=== PATIENT | male | born 1940 | race Caucasian/White ===

== ENCOUNTER 2022-05-30 16:25 | Inpatient (IN) ==
[2022-05-30] MEDS ORDERED: ONDANSETRON INJ 2 MG/ML 2 ML VIAL IV STA ×2 (17:20→21:36)
[2022-05-30 17:27] LABS: Basophils # (auto) 0.02 K/uL (0-0.2); Basophils % (auto) 0.2 %; Hematocrit (blood only) 41.8 % (40.1-51.0); Hemoglobin 14.8 g/dl (14.0-18.0); Immature Granulocytes # (auto) 0.03 K/uL (0.00-0.02); Immature Granulocytes % (auto) 0.4 %; Lymphocytes # (auto) 0.57 K/uL (1.2-3.4); Mean Corpuscular Hemoglobin 35.3 pg (25.0-34.0); Mean Corpuscular Hgb Conc 35.4 g/dL (32.0-36.0); Mean Corpuscular Volume 99.8 fL (80.0-100.0); Mean Platelet Volume 11.4 fL (9.4-12.4); Monocytes # (auto) 0.52 K/uL (0.24-0.82); Monocytes % (auto) 6.4 %; Neutrophils # (auto) 7.04 K/uL (1.4-6.5); Platelet Count 185 K/uL (130-400); RDW Standard Deviation 47.9 fL (36.4-46.3); Red Blood Count 4.19 M/uL (4.63-6.08); White Blood Count 8.18 K/ul (4.8-10.8)
--- NOTE | 2022-05-30 17:37 | XRay Report ---
XR chest 1V portable CLINICAL HISTORY: weakness TECHNIQUE: Single frontal radiograph of the chest was obtained. Comparison: None available at the time of this dictation. FINDINGS: Pacemaker is noted. Cardiomegaly is noted. The lungs are clear. No evidence of pleural effusion or pn eumothorax. IMPRESSION: No acute chest disease. Cardiomegaly is noted. ACT 112: Negative or not required by law. Electronically signed by: Darrin Rosales M.D. 05/30/2022 5:35 PM
[2022-05-30 17:52] LABS: Albumin Globulin Ratio 1.8 (0.9-2); Albumin Level 4.6 gm/dl (3.4-5.0); BUN Creatinine Ratio 17.6 (10-20); Bilirubin,Total 1.3 mg/dl (0.2-1.0); Calcium 9.6 mg/dl (8.5-10.1); Creatinine Clr Calc Pharmacy 57.3 ml/min; Est GFR (African American) 75.3 ml/min; Est GFR (Non-African American) 64.9 ml/min; Globulin 2.6 gm/dl (2.5-4.0); Potassium 3.7 mmol/L (3.5-5.1); Total Protein 7.2 gm/dl (6.0-8.3)
[2022-05-30 17:54] LABS: Partial Thromboplastin Ratio 0.9; Partial Thromboplastin Time 25.8 Seconds (21.0-31.0)
--- NOTE | 2022-05-30 18:07 | CT Scan Report ---
CT head/brain wo con CLINICAL HISTORY: AMS Technique: Contiguous axial CT images of the head were acquired from the base of the skull to the jemima misty without intravenous contrast administration. Images were viewed in brain, subdural [facility]. Automated dose lowering techniques and/or adjustment according to patient size were utilized for this exam. Comparison: None available at the time of this dictation. Findings: Areas of decreased attenuation are present in the periventricular and subcortical white matter bilate rally consistent with small vessel ischemic disease. Generalized cerebral atrophy with commensurate e nlargement of the ventricles, sulci, and cisterns is also present. There is no acute intracranial hem orrhage or evidence of acute territorial infarction. No shift of the midline structures, mass effect, or extra-axial abnormalities are shown. Atherosclerotic calcifications are present in the intracran ial segments of the internal carotid arteries. Imaged portions of the paranasal sinuses and mastoid air cells are clear. The orbits appear normal. There are no acute fractures of the calvaria or scalp swelling. Impression: No acute intracranial hemorrhage, no evidence of acute territorial infarction or other acute intracra nial disease process. ACT 112: Negative or not required by law. Electronically signed by: Darrin Rosales M.D. 05/30/2022 6:04 PM
[2022-05-30] MEDS ORDERED: OPTIRAY 320 500ml IV ONE ×2 (19:24→21:07)
[2022-05-30 19:26] LABS: Influenza A virus by PCR Negative (Neg); Influenza B virus by PCR Negative (Neg); RSV by PCR Negative (Neg); SARS CoV2 RNA(COVID-19) Ceph NEGATIVE (Negative)
--- NOTE | 2022-05-30 20:08 | CT Scan Report ---
CT angio head w con, CT angio neck with con CLINICAL HISTORY: CVA sx, aphasia TECHNIQUE: Contiguous axial CT images of the head were acquired from the base of the skull to the jemima misty without intravenous contrast administration. CT angiography of the head and neck was performed f ollowing intravenous administration of iodinated contrast. Coronal and sagittal MIPS were obtained fr om the axial data set and were submitted for review. Automated dose lowering techniques and/or adjus tment according to patient size were utilized for this examination. All measurements were calculated based on NASCET criteria. CT DOSE: 600.39 mGy.cm Comparison: Comparison is made to CT head 05/30/2022 FINDINGS: Lungs and soft tissues are unremarkable. CTA Neck: Direct origin of the left vertebral artery from the aortic arch is seen. There are dissect ions of the bilateral internal carotid arteries which do not extend to the petrous portion of the ves fernanda. The dissections measure 14 mm on the left and 14 mm on the right. The internal carotid arteries are tortuous bilaterally. The common carotid, external carotid, cervical segments of the internal ca rotid arteries, and the cervical segments of the vertebral arteries are patent without hemodynamicall y significant stenosis. The left vertebral artery is dominant. CTA Head: The anterior and posterior cerebral circulations are patent. The left vertebral artery ter minates in PICA. origin of the left UPHOLSTERER APPRENTICE noted. IMPRESSION: 1. Dissections of the bilateral internal carotid arteries not extending to the petrous portion of th e artery. Distal internal carotid arteries are well opacified. 2. No occlusion, hemodynamically significant stenosis, aneurysm, dissection, or arteriovenous malfor mation in the major intracranial arteries. Assessment of stenosis of the internal carotid arteries is based on NASCET criteria. ACT 112: Negative or not required by law. Electronically signed by: Darrin Rosales M.D. 05/30/2022 8:05 PM
[2022-05-30] MEDS ORDERED: METOPROLOL TARTRATE 1 MG/ML VIAL IV STA (21:28)
[2022-05-30] MEDS ORDERED: METOPROLOL TARTRATE 1 MG/ML VIAL IV ONE (21:29)
[2022-05-30] MEDS: SODIUM CHLORIDE 0.9% 1000ML 1,000 ML IV SCH (21:40)
[2022-05-30 22:03] LABS: Magnesium 1.8 mg/dl (1.7-2.4)
[2022-05-30 22:07] LABS: Troponin I High Sensitivity 13.1 pg/ml (0-20)
--- NOTE | 2022-05-30 22:09 | History & Physical Report ---
Date of Service May 30, 2022 Assessment & Plan (1) Encephalopathy acute: Plan: Corey is a 81 year old male w/ unknown past medical history admitted for acute encephalopathy. Encephalopathy: -CBC, CMP, TSH, glucose WNL. COVID/Flu/RSV negative. -CT Head w/o any acute intracranial process. -CTA Head and Neck: dissections of b/l internal carotid arteries, distal internal carotid arteries well opacified. -Chest XR without any evidence for acute lung process, sinuses clear on head CT. U/A w/ reflex, stool PCR ordered for possible infectious etiology. -Unclear at current time whether confusion due to metabolic encephalopathy vs seizure post-ictal state vs alcoholic Wernicke's vs other cause. -Ordered Ammonia, B12, Folate, alcohol level, routine EEG, MRI brain w/o contrast. -Started on NSS 125ml/hr. Zofran 4mg IV q6h -Neuro checks q4h. -Can consult neurology if no improvement on above. Hypoxia: -Hypoxic to 86 on entry on RA. Up to WNL on 3L O2. -CXR as above, no acute lung process. -No known past history of smoking or lung disease. -Wean as tolerated. -Continue to monitor O2. Internal Carotid Artery Dissection: -CTA head and neck w/ dissections of b/l internal carotid arteries. -Possibly chronic as patient states he has been seen for carotid vessel issues in the past 10 years prior. -No residual deficits from baseline per patient, less likely stroke or contri bution to confusion from dissections. -Patient on aspirin at home, will continue ASA 81mg here although dosage at home unknown. -Continue to monitor mentation. F/E/N/GI: NPO, monitor electrolytes, NSS 125ml/hr DVT Prophylaxis: SCDs, per patient no past history of GI bleed. Code Status: Full code, patient with questionable current capacity in confused state, attempted to call however no answer and she is in rehabilitation facility. Hopefully confusion will improve. Dispo: Med/Surg Telemetry. (2) Internal carotid artery dissection: (3) Hypoxia: History of Present Illness Chief Complaint: Confusion Primary Care Provider: NO PCP Corey is a 81 year old male w/ unclear past medical history presented to the ED from his 's physical rehabilitation facility for confusion. Patient states he has a difficult time remembering the details of things past and present at the current time however said he came up from [facility] earlier today to visit his in her rehabilitation facility. He states that he drove up earlier today feeling a little out of character, not feeling too well, drove to the facility, and had started to get weak and go down in the facility. Staff helped him up at that time and called EMS to bring him to the hospital. He has a hard time remembering any past medical history, however states that he did have a possible stroke event 10 years prior resulting in some residual weakness bilaterally, more so on the right side. He states he had a past discovery of vessel issue in the neck for 10 years back as well for which he did not undergo any surgical intervention. He says he is on medications for his heart but unsure which ones, although he did endorse being on a daily aspirin. He confirms the presence of a pacemaker and says that it was put in place 1.5 years ago however unclear on why it was placed. He denies any fevers, chills, shortness of breath, chest pain, vomiting; he does have nausea. He has had some diarrhea over the past few days but denies consuming any raw, undercooked food or seafood. He states he usually drinks about 1-2 beers during dinner time, may have another beer while reading, followed by a glass or two of whiskey that may be partially diluted. This is a daily occurrence for him and the last drink he had was whiskey yesterday night. He denies any history of smoking or drug use. Allergies Allergy/AdvReac Type Severity Reaction Status Date / Time No Known Allergies Allergy Unverified 05/30/22 20:25 Home Medications Medication Instructions Recorded Confirmed Type atorvastatin 40 mg tablet 40 mg PO ONCE HS 05/31/22 05/31/22 History cholecalciferol (vitamin D3) 50 PO DAILY 05/31/22 History mcg (2,000 unit) capsule diltiazem HCl 300 mg 300 mg PO DAILY 05/31/22 05/31/22 History capsule,extended release 24 hr furosemide 40 mg tablet 40 mg PO BID 05/31/22 05/31/22 History hydrocodone 5 mg-acetaminophen 325 1 tab PO Q8H PRN Severe Pain 05/31/22 05/31/22 History mg tablet (Scale Score 7-10) prednisone 10 mg tablet mg 05/31/22 History tamsulosin 0.4 mg capsule 0.4 mg PO DAILY 05/31/22 05/31/22 History Past Med/Surg History Medical History (Updated 05/31/22 @ 16:11 by Ronnell Cheng PA-C) Hypercholesterolemia Social History Smoking Status: Never smoker Hx Alcohol Use: Yes Alcohol type: beer and hard liquor Hx Substance Use: No Preferred Language: Lao Communication Ability: Effective 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 Physical Exam Constitutional: WD/WN, vitals as above Eyes: PERRL, conjunctivae normal, anicteric sclerae Respiratory: normal respiratory effort, lungs clear to auscultation Cardiovascular: Tachycardic, S1 and S2, holosystolic murmur best heard at L sternal border. Gastrointestinal (Abdomen): BS+, soft, non-tender, distended. Musculoskeletal: Strength 4/5 at bilateral lower extremities (patient states baseline since possible stroke 10 years ago) Neurologic: normal touch/pain/proprioception, CN's II-XI intact bilaterally, awake and + confused Psychiatric: Apperance: + disheveled and appeared stated age Eye Contact: + fair eye contact Oriented to time, place, and name. Recent memory mostly in tact, remote memory mildly intact. Results & Data Results & Data ([facility]) Vital Signs (Past 12 Hours) Vital Signs Temp Pulse Pulse Resp BP BP Pulse Ox 05/30/22 21:32 113 H 183/85 H 05/30/22 21:27 120 H 23 131/81 87 L 05/30/22 20:05 60 159/91 H 94 05/30/22 18:00 60 21 05/30/22 18:00 156/87 H 05/30/22 17:30 60 23 95 05/30/22 17:00 60 21 92 05/30/22 17:00 152/88 H 05/30/22 16:42 60 20 92 05/30/22 16:42 156/89 H 05/30/22 16:38 61 22 86 L 05/30/22 17:09 78 20 98 05/30/22 16:14 88 L 05/30/22 16:14 36.8 C 60 20 150/89 H 98 O2 Del Method O2 Flow Rate 05/30/22 21:32 05/30/22 21:27 Non-rebreather 05/30/22 20:05 05/30/22 18:00 05/30/22 18:00 05/30/22 17:30 Nasal Cannula 3 05/30/22 17:00 05/30/22 17:00 05/30/22 16:42 05/30/22 16:42 05/30/22 16:38 05/30/22 17:09 Nasal Cannula 3 05/30/22 16:14 Room Air 05/30/22 16:14 Nasal Cannula 3 Supervising Physician Co-Signing Physician Notes Attending addendum: I have physically seen this patient, have supervised the medical residents activities, and agree with the H&P unless as otherwise noted. Assessment and Plan: Acute encephalopathy- CT head without contrast negative CTA head and neck with dissection of internal carotid arteries bilaterally not involving petrous portion of carotids Order MRI brain, if pacer is MRI compatible Ischemic stroke with a TIA protocol NSS at 125 mils per hour Zofran 4 mg IV every 6 hours as needed Differential including metabolic versus postictal versus Warnicke's or other Follow urine culture sensitivity, blood culture and sensitivities Hypoxia- CTA chest negative for PE CTA chest does show COPD Suspect COPD exacerbation Wean oxygen to target of pulse ox 92% DuoNebs every 2 hours as needed May be contributing to or cause of encephalopathic picture Bilateral carotid artery dissection- Patient reports having been told of a problem with his carotid vessels 10 years ago Likely a chronic issue MRI brain/MRA if pacer is MRI or compatible Otherwise may consider carotid Dopplers for different view Neurology to assess Remaining orders and notations as noted Resident Activity Tracking Resident Involvement: Resident Care Provided Care Provided: Adult Hospital Medicine
[2022-05-30 23:31] LABS: Appearance Urine Clear (Clear); Bacteria Urine Automated Negative (Negative); Bilirubin Urine Negative (Negative); Blood Urine Negative (Negative); Color Urine Yellow; Glucose Urine UA Negative (Negative); Ketones Urine Trace (Negative); Leukocyte Esterase Urine Negative (Negative); Nitrite Urine Negative (Negative); Protein Urine 1+ (Negative); RBC Urine Automated 0-4 /hpf (0-4); Specific Gravity Urine > 1.045 (1.000-1.030); Urobilinogen Urine Negative (Negative)
[2022-05-31] MEDS ORDERED: ONDANSETRON INJ 2 MG/ML 2 ML VIAL IV PRN (00:42)
[2022-05-31] MEDS ORDERED: ACETAMINOPHEN 325 MG TAB PO PRN (00:42)
[2022-05-31] MEDS: SODIUM CHLORIDE 0.9% 1000ML 1,000 ML IV SCH ×3 (06:45→23:27)
--- NOTE | 2022-05-31 07:14 | CT Scan Report ---
CT ANGIOGRAM OF THE ABDOMEN AND PELVIS CLINICAL HISTORY: Generalized abdominal pain. COMPARISON STUDY: No priors. TECHNIQUE: Following the IV administration of 114 cc of Optiray 320, CT angiogram of the abdomen and pelvis was performed from the lung bases the proximal femora. Images are reviewed in the axial, sagit saadia, and coronal planes. 3-D MIPS images are created and assessed. IV contrast was administered witho ut complication. A dose lowering technique was utilized adhering to the principles of ALARA. The exa mination is compromised by motion artifact. FINDINGS: Lower chest: The heart is enlarged and without pericardial effusion. A pacemaker lead is in place. Th ere is a tiny hiatal hernia. The lung bases are clear noting bibasilar scarring/atelectasis. Liver: The contrast-enhanced liver is normal in size, contour, and attenuation. There is no intrahepa tic biliary ductal dilatation. Gallbladder: Not identified and presumed surgically absent. Spleen: Normal in size and attenuation. Pancreas: Unremarkable. Adrenal glands: Unremarkable. Kidneys: The contrast enhanced kidneys demonstrate marked cortical atrophy and are without hydronephr osis. The kidneys enhance indication symmetrically. Excreted IV contrast fills the renal collecting s ystems and ureters. Abdominal aorta and iliac arteries: There is advanced atherosclerotic calcification and ectasia of th e abdominal aorta. The distal abdominal aorta measures up to 2.8 cm in diameter. The abdominal aorta is widely patent. No dissection is seen. The iliac arteries are widely patent bilaterally. Major branches of the abdominal aorta: The celiac trunk, superior mesenteric, and inferior mesenteric arteries are widely patent. An accessory left hepatic artery arises from the left gastric artery. Th e splenic artery is patent. Single bilateral renal arteries are widely patent. Bowel: There is mild colonic diverticulosis without CT evidence of acute diverticulitis. No bowel obs truction is seen. The appendix is not clearly visualized. Peritoneum: There is no intraperitoneal free air or abdominal ascites. There is a fat-containing umbi lical hernia. Lymphadenopathy: None. Pelvic viscera: Evaluation of the pelvis is degraded by streak artifact from a right hip arthroplasty . The prostate gland is enlarged and heterogeneous. The bladder is filled with excreted IV contrast. The bladder wall appears thickened and trabeculated indicating chronic outlet obstruction. There are several bladder diverticula which measure up to 2.3 cm. Skeletal structures: The skeletal structures are osteopenic. No destructive bony lesions are seen. A right hip arthroplasty is in place. There are healed right pubic ring fractures. There are age indete rminate compression deformities of T10, T11, T12, L1, and L5. IMPRESSION: 1. There is advanced atherosclerotic calcification and ectasia of the abdominal aorta. 2. No dissection is seen. 3. Unremarkable CT angiogram of the major branches of the abdominal aorta. 4. No acute infectious or inflammatory findings are identified in the abdomen or pelvis. 5. Marked cardiomegaly and cardiac pacemaker. 6. There are age indeterminant thoracolumbar compression deformities as above. Clinical correlation w ill be required. 7. Colonic diverticulosis without CT evidence of acute diverticulitis. 8. Prostatomegaly with evidence of chronic bladder outlet obstruction. 9. Additional findings as above. ACT 112: Negative or not required by law. Electronically signed by: Gerardo Saze M.D. 05/31/2022 7:11 AM
--- NOTE | 2022-05-31 08:39 | CT Scan Report ---
CT ANGIOGRAPHY OF THE CHEST DISSECTION PROTOCOL CLINICAL HISTORY: Chest pain. Evaluate for aortic dissection. COMPARISON STUDY: Chest radiograph May 30, 2022. TECHNIQUE: Before and following the IV administration of 114 mL of Optiray, helical axial images of t he chest were obtained. Maximal intensity projections and sagittal and coronal reformats were viewed on an independent 3D workstation. IV contrast was administered without complication. Automated exp osure control was utilized for the study. A dose lowering technique was utilized adhering to the [facility] BLANCO. CT DOSE: 888.93 mGy.cm FINDINGS: Caliber of the thoracic aorta is normal. There is no intramural hematoma or thoracic aorti c dissection. There is cardiomegaly. Left atrial appendage occluded device is in place. A left subcla vian pacer is in place. There is pronounced dilatation of the left atrium and left ventricle. There i s no pericardial effusion. Moderate dilatation of the central pulmonary arteries is noted. There is n o pneumothorax thorax. Trace bilateral pleural effusions are noted. Mild interlobular septal thickeni ng is noted. There is no consolidation to suggest pneumonia. Groundglass opacities favor atelectasis. Moderate T3 and T5 compression fractures are likely old. There are severe T10 and T11 compression fr actures. These are age indeterminate but probably old. There is an age indeterminate moderate to paige re L1 compression fracture. A 1.5 cm right upper pole renal calculus is present. IMPRESSION: 1. No thoracic aortic dissection. 2. Cardiomegaly with mild interstitial pulmonary edema and trace bilateral pleural effusions. 3. No consolidation to suggest pneumonia. 4. Multiple thoracic and upper lumbar spine compression fractures, as detailed above. 5. 1.5 cm right renal calculus. ACT 112: Negative or not required by law. Electronically signed by: Liang Cho M.D. 05/31/2022 8:38 AM
--- NOTE | 2022-05-31 09:10 | Emergency Department Note ---
Impression & Plan Internal carotid artery dissection, Hypoxia, Altered mental status ED Provider Note CHIEF COMPLAINT: Confusion, weakness HISTORY OF PRESENT ILLNESS: This 81-year-old male patient with a history of hypercholesterolemia and hypertension presents to the emergency department with complaints of confusion as of 11:00 this morning. Patient states he was able to drive to see his at the [facility]. Patient was found to be confused and hypoxic and a "loss for words" upon arrival to his 's room. EMS was called. He was noted to be 88% on room air, improving to 95% on 3 L by report. Patient states he has been with his at [facility] where she was admitted recently. He states she is frail but in "better shape than he is at this point." He is otherwise a fairly poor historian. Patient does mention that his grown children live [place]. REVIEW OF SYSTEMS: Unable to give a full review of systems secondary to confusion/difficulty with speech. ALLERGIES: see below MEDICATIONS: see below PMH: Hypertension, hyper cholesterolemia SOCIAL HISTORY: DDx: Infection, dehydration, metabolic abnormality, hypo/hyperglycemia, electrolyte disturbance, anemia, hypoxia, cardiac sources, intracerebral event, toxicologic, neurologic, as well as other pathologies. PHYSICAL EXAM: Vital signs reviewed. General: Elderly 81-year-old male, appears to be ill, on nasal cannula oxygen HEENT: No scleral icterus, PERRLA, neck supple. Dry mucous membranes. Cardiovascular: Regular rate and rhythm, no extra sounds. Pacemaker noted in the left anterior chest. Pulmonary: Clear to auscultation bilaterally, normal work of breathing. Abdomen: Soft, nontender, nondistended, positive bowel sounds. Musculoskeletal: Atraumatic, no peripheral edema. Neurologic: Awake and alert, able to follow commands. Speech is somewhat mumbled, occasionally substitutes incorrect words/word salad. Negative pronator drift, intact [id number]. Does become confused with complex commands. Generally seems weak. Skin: Warm, dry, no rash EMERGENCY DEPARTMENT COURSE/MDM: This patient was evaluated and appeared to be in no significant distress. Patient was borderline hypoxic on nasal cannula oxygen. He was at 1 point escalated to oxygen mask/nonrebreather. He did become nauseated on several occasions. Patient was given IV Zofran. External records were reviewed as best possible by medication history. His [facility] records were not immediately available. CT imaging of the head was performed and revealed no acute intracranial abnormality. On repeat evaluation, the patient seemed to decline further with nausea, retching and his speech became more jumbled, although patient did seem to have periods of lucency. Patient is noted to be in a ventricular paced rhythm with underlying atrial flutter. He did receive 5 mg of IV metoprolol was ordered. CT angiograms were ordered and revealed bilateral internal carotid artery dissections. CT imaging of the chest and abdomen were then ordered and revealed no evidence of aortic dissection. Patient states he remembers "asymmetry" of his carotids. He was unable to give more detail. Patient was discussed with the hospitalist service as the acuity of the situation is unclear. He will require MRI of the brain, oxygen supplemen tation. MONITORING: An order for cardiac monitoring was placed and the patient is noted to be in a ventricularly paced rhythm with underlying atrial flutter at 60 beats per minute. RADIOLOGY: See below EKG: To my interpretation reveals a ventricular paced rhythm at 60 bpm, possible underlying atrial flutter versus artifact. No previous for comparison. DISPOSITION: Admission I have personally spent greater than 45 minutes of critical care time in the direct management of this patient. This includes bedside care, interpretation of diagnostic studies, and testing, discussion with consultants, patient, and family members, and other required patient management activities. This 45 minutes is in excess of all separately billable procedures. Past Med/Surg History Medical History A-fib HTN (hypertension) Hypercholesterolemia Family History Mother , age 59 of an [facility] Myocardial infarction Father , age 91 with colon cancer Colorectal cancer Social History Smoking Status: Never smoker Hx Alcohol Use: Yes Alcohol type: beer and hard liquor Alcohol Intake Frequency: 4 or More x per/Week Alcohol Intake Frequency Comment: 1-2 beers per day plus a whiskey (or Gin) in the evening. Hx Substance Use: No Preferred Language: Maori Communication Ability: Effective Can Technician Required: No Beliefs That Will Affect Care: None Current Living Situation: Alone current occupational status: retired current occupation: former personal computer network analyst Feels Safe at Home: Yes Assistive Devices: Glasses and Walker Allergies Allergies Allergy/AdvReac Type Severity Reaction Status Date / Time No Known Allergies Allergy Unverified 05/30/22 20:25 Home Meds Home Medications Medication Instructions Recorded Confirmed atorvastatin 40 mg tablet 40 mg PO ONCE HS 05/31/22 05/31/22 cholecalciferol (vitamin D3) 50 PO DAILY 05/31/22 mcg (2,000 unit) capsule diltiazem HCl 300 mg 300 mg PO DAILY 05/31/22 05/31/22 capsule,extended release 24 hr furosemide 40 mg tablet 40 mg PO BID 05/31/22 05/31/22 hydrocodone 5 mg-acetaminophen 325 1 tab PO Q8H PRN Severe Pain 05/31/22 05/31/22 mg tablet (Scale Score 7-10) Previous Rx's Medication Instructions Recorded cyanocobalamin (vitamin B-12) 500 500 mcg PO QAM #30 tabs 06/02/22 mcg tablet thiamine HCl (vitamin B1) 100 mg 100 mg PO QAM #30 tabs 06/02/22 tablet Results & Data (ED) Vital Signs Vital Signs - 24 hr 05/30/22 16:14 05/30/22 16:14 05/30/22 17:09 Temperature 36.8 C Temperature Source Oral Pulse Rate 60 78 Pulse Rate [Right Finger] Pulse Rate from SpO2 Sensor Pulse Rhythm Regular Regular Pulse Rhythm [Right Finger] Pulse Strength Normal Respiratory Rate 20 20 Respiratory Effort / Characteristics Non-Labored Respiratory Depth Normal Respiratory Pattern Blood Pressure 150/89 H Blood Pressure [Right Arm] Blood Pressure Mean 109 Blood Pressure Mean [Right Arm] Blood Pressure Position Sitting Pulse Oximetry 98 88 L 98 Oxygen Delivery Method Nasal Cannula Room Air Nasal Cannula Oxygen Flow Rate 3 3 Sepsis Recent Fever Within 48 Hours No Sepsis New/Unexplained Change in Mental Status N/A Sepsis Action Taken by Nursing No Action Required Oxygen Flow Rate - Titration 4 Pulse Oximetry Post Tiitration 98 05/30/22 16:38 05/30/22 16:42 05/30/22 16:42 Temperature Temperature Source Pulse Rate 61 60 Pulse Rate [Right Finger] Pulse Rate from SpO2 Sensor 60 60 Pulse Rhythm Pulse Rhythm [Right Finger] Pulse Strength Respiratory Rate 22 20 Respiratory Effort / Characteristics Respiratory Depth Respiratory Pattern Blood Pressure 156/89 H Blood Pressure [Right Arm] Blood Pressure Mean 111 Blood Pressure Mean [Right Arm] Blood Pressure Position Pulse Oximetry 86 L 92 Oxygen Delivery Method Oxygen Flow Rate Sepsis Recent Fever Within 48 Hours Sepsis New/Unexplained Change in Mental Status Sepsis Action Taken by Nursing Oxygen Flow Rate - Titration Pulse Oximetry Post Tiitration 05/30/22 17:00 05/30/22 17:00 05/30/22 17:30 Temperature Temperature Source Pulse Rate 60 60 Pulse Rate [Right Finger] Pulse Rate from SpO2 Sensor 60 57 L Pulse Rhythm Pulse Rhythm [Right Finger] Pulse Strength Respiratory Rate 21 23 Respiratory Effort / Characteristics Respiratory Depth Respiratory Pattern Blood Pressure 152/88 H Blood Pressure [Right Arm] Blood Pressure Mean 109 Blood Pressure Mean [Right Arm] Blood Pressure Position Pulse Oximetry 92 95 Oxygen Delivery Method Nasal Cannula Oxygen Flow Rate 3 Sepsis Recent Fever Within 48 Hours Sepsis New/Unexplained Change in Mental Status Sepsis Action Taken by Nursing Oxygen Flow Rate - Titration Pulse Oximetry Post Tiitration 05/30/22 18:00 05/30/22 18:00 05/30/22 20:05 Temperature Temperature Source Pulse Rate 60 Pulse Rate [Right Finger] 60 Pulse Rate from SpO2 Sensor Pulse Rhythm Pulse Rhythm [Right Finger] Regular Pulse Strength Respiratory Rate 21 Respiratory Effort / Characteristics Respiratory Depth Respiratory Pattern Regular Blood Pressure 156/87 H Blood Pressure [Right Arm] 159/91 H Blood Pressure Mean 110 Blood Pressure Mean [Right Arm] 113 Blood Pressure Position Pulse Oximetry 94 Oxygen Delivery Method Oxygen Flow Rate Sepsis Recent Fever Within 48 Hours Sepsis New/Unexplained Change in Mental Status Sepsis Action Taken by Nursing Oxygen Flow Rate - Titration Pulse Oximetry Post Tiitration 05/30/22 21:27 05/30/22 21:32 05/30/22 19:02 Temperature Temperature Source Pulse Rate 113 H 60 Pulse Rate [Right Finger] 120 H Pulse Rate from SpO2 Sensor 60 Pulse Rhythm Pulse Rhythm [Right Finger] Pulse Strength Respiratory Rate 23 21 Respiratory Effort / Characteristics Respiratory Depth Respiratory Pattern Blood Pressure 183/85 H 159/89 H Blood Pressure [Right Arm] 131/81 Blood Pressure Mean 112 Blood Pressure Mean [Right Arm] 97 Blood Pressure Position Pulse Oximetry 87 L 93 Oxygen Delivery Method Non-rebreather Oxygen Flow Rate Sepsis Recent Fever Within 48 Hours Sepsis New/Unexplained Change in Mental Status Sepsis Action Taken by Nursing Oxygen Flow Rate - Titration Pulse Oximetry Post Tiitration 05/30/22 20:00 05/30/22 20:30 05/30/22 21:20 Temperature Temperature Source Pulse Rate 60 60 128 H Pulse Rate [Right Finger] Pulse Rate from SpO2 Sensor 59 L 59 L 60 Pulse Rhythm Pulse Rhythm [Right Finger] Pulse Strength Respiratory Rate 22 23 31 H Respiratory Effort / Characteristics Respiratory Depth Respiratory Pattern Blood Pressure 159/91 H 165/92 H 131/81 Blood Pressure [Right Arm] Blood Pressure Mean 113 116 97 Blood Pressure Mean [Right Arm] Blood Pressure Position Pulse Oximetry 95 93 Oxygen Delivery Method Oxygen Flow Rate Sepsis Recent Fever Within 48 Hours Sepsis New/Unexplained Change in Mental Status Sepsis Action Taken by Nursing Oxygen Flow Rate - Titration Pulse Oximetry Post Tiitration 05/30/22 21:30 05/30/22 21:46 05/30/22 21:46 Temperature Temperature Source Pulse Rate 70 74 Pulse Rate [Right Finger] Pulse Rate from SpO2 Sensor 60 64 Pulse Rhythm Pulse Rhythm [Right Finger] Pulse Strength Respiratory Rate 28 H 32 H Respiratory Effort / Characteristics Respiratory Depth Respiratory Pattern Blood Pressure 183/85 H 160/95 H Blood Pressure [Right Arm] Blood Pressure Mean 117 116 Blood Pressure Mean [Right Arm] Blood Pressure Position Pulse Oximetry 94 91 Oxygen Delivery Method Oxygen Flow Rate Sepsis Recent Fever Within 48 Hours Sepsis New/Unexplained Change in Mental Status Sepsis Action Taken by Nursing Oxygen Flow Rate - Titration Pulse Oximetry Post Tiitration 05/30/22 22:00 05/30/22 22:15 05/30/22 22:15 Temperature Temperature Source Pulse Rate 60 Pulse Rate [Right Finger] Pulse Rate from SpO2 Sensor 60 60 Pulse Rhythm Pulse Rhythm [Right Finger] Pulse Strength Respiratory Rate 22 25 H Respiratory Effort / Characteristics Respiratory Depth Respiratory Pattern Blood Pressure 164/98 H 156/95 H Blood Pressure [Right Arm] Blood Pressure Mean 120 115 Blood Pressure Mean [Right Arm] Blood Pressure Position Pulse Oximetry 91 92 Oxygen Delivery Method Oxygen Flow Rate Sepsis Recent Fever Within 48 Hours Sepsis New/Unexplained Change in Mental Status Sepsis Action Taken by Nursing Oxygen Flow Rate - Titration Pulse Oximetry Post Tiitration 05/30/22 22:30 Temperature Temperature Source Pulse Rate 60 Pulse Rate [Right Finger] Pulse Rate from SpO2 Sensor 60 Pulse Rhythm Pulse Rhythm [Right Finger] Pulse Strength Respiratory Rate 23 Respiratory Effort / Characteristics Respiratory Depth Respiratory Pattern Blood Pressure 162/99 H Blood Pressure [Right Arm] Blood Pressure Mean 120 Blood Pressure Mean [Right Arm] Blood Pressure Position Pulse Oximetry 94 Oxygen Delivery Method Oxygen Flow Rate Sepsis Recent Fever Within 48 Hours Sepsis New/Unexplained Change in Mental Status Sepsis Action Taken by Nursing Oxygen Flow Rate - Titration Pulse Oximetry Post Tiitration Home Medications Current Medication List: was personally reviewed by me Laboratory Data Attestation: I reviewed the patient's lab results. 06/02/22 08:28 06/02/22 08:28 Lab Results 05/30/22 05/30/22 05/30/22 Range/Units 17:09 17:09 17:09 WBC 8.18 (4.8-10.8) K/ul RBC 4.19 L (4.63-6.08) M/uL Hgb 14.8 (14.0-18.0) g/dl Hct 41.8 (40.1-51.0) % MCV 99.8 (80.0-100.0) fL MCH 35.3 H (25.0-34.0) pg MCHC 35.4 (32.0-36.0) g/dL RDW Std Deviation 47.9 H (36.4-46.3) fL RDW Coeff of Chandana 13.0 (11.5-14.5) % Plt Count 185 (130-400) K/uL MPV 11.4 (9.4-12.4) fL Immature Gran % (Auto) 0.4 % Neut % (Auto) 86.0 % Lymph % (Auto) 7.0 % Campbell % (Auto) 6.4 % Eos % (Auto) 0.0 % Baso % (Auto) 0.2 % Neut # (Auto) 7.04 H (1.4-6.5) K/uL Lymph # (Auto) 0.57 L (1.2-3.4) K/uL Campbell # (Auto) 0.52 (0.24-0.82) K/uL Eos # (Auto) 0.00 (0-0.50) K/uL Baso # (Auto) 0.02 (0-0.2) K/uL Immature Gran # (Auto) 0.03 H (0.00-0.02) K/uL PT (9.0-12.0) Seconds INR (0.9-1.1) APTT (21.0-31.0) Seconds PTT Ratio Sodium 139 (136-145) mmol/L Potassium 3.7 (3.5-5.1) mmol/L Chloride 99 (98-107) mmol/L Carbon Dioxide 29 (21-32) mmol/L Anion Gap 11 (3-11) BUN 19 (6-23) mg/dl Creatinine 1.08 (0.6-1.4) mg/dl Est Cr Clr Drug Dosing 57.3 ml/min Est GFR ( Amer) 75.3 ml/min Est GFR (Non-Af Amer) 64.9 ml/min BUN/Creatinine Ratio 17.6 (10-20) Glucose 183 H (70-99(Fasting)) mg/dl Calcium 9.6 (8.5-10.1) mg/dl Magnesium (1.7-2.4) mg/dl Total Bilirubin 1.3 H (0.2-1.0) mg/dl AST 34 (13-39) U/L ALT 26 (7-52) U/L Alkaline Phosphatase 71 (34-104) U/L Troponin I High Sens (0-20) pg/ml Total Protein 7.2 (6.0-8.3) gm/dl Albumin 4.6 (3.4-5.0) gm/dl Globulin 2.6 (2.5-4.0) gm/dl Albumin/Globulin Ratio 1.8 (0.9-2) TSH 0.818 (0.300-4.500) uIu/ml 05/30/22 05/30/22 Range/Units 17:09 17:09 WBC (4.8-10.8) K/ul RBC (4.63-6.08) M/uL Hgb (14.0-18.0) g/dl Hct (40.1-51.0) % MCV (80.0-100.0) fL MCH (25.0-34.0) pg MCHC (32.0-36.0) g/dL RDW Std Deviation (36.4-46.3) fL RDW Coeff of Chandana (11.5-14.5) % Plt Count (130-400) K/uL MPV (9.4-12.4) fL Immature Gran % (Auto) % Neut % (Auto) % Lymph % (Auto) % Campbell % (Auto) % Eos % (Auto) % Baso % (Auto) % Neut # (Auto) (1.4-6.5) K/uL Lymph # (Auto) (1.2-3.4) K/uL Campbell # (Auto) (0.24-0.82) K/uL Eos # (Auto) (0-0.50) K/uL Baso # (Auto) (0-0.2) K/uL Immature Gran # (Auto) (0.00-0.02) K/uL PT 11.0 (9.0-12.0) Seconds INR 1.0 (0.9-1.1) APTT 25.8 (21.0-31.0) Seconds PTT Ratio 0.9 Sodium (136-145) mmol/L Potassium (3.5-5.1) mmol/L Chloride (98-107) mmol/L Carbon Dioxide (21-32) mmol/L Anion Gap (3-11) BUN (6-23) mg/dl Creatinine (0.6-1.4) mg/dl Est Cr Clr Drug Dosing ml/min Est GFR ( Amer) ml/min Est GFR (Non-Af Amer) ml/min BUN/Creatinine Ratio (10-20) Glucose (70-99(Fasting)) mg/dl Calcium (8.5-10.1) mg/dl Magnesium 1.8 (1.7-2.4) mg/dl Total Bilirubin (0.2-1.0) mg/dl AST (13-39) U/L ALT (7-52) U/L Alkaline Phosphatase (34-104) U/L Troponin I High Sens 13.1 (0-20) pg/ml Total Protein (6.0-8.3) gm/dl Albumin (3.4-5.0) gm/dl Globulin (2.5-4.0) gm/dl Albumin/Globulin Ratio (0.9-2) TSH (0.300-4.500) uIu/ml Administered Medications Discontinued Medications Aspirin (Aspirin 81 Mg Ectab) 81 mg PO QAM LITZY Stop: 06/30/22 08:59 Last Admin: 06/01/22 07:41 Dose: 81 mg Documented By: Admin: 05/31/22 09:39 Dose: 81 mg Documented By: NAKIA Atorvastatin Calcium (Atorvastatin 40 Mg Tab) 40 mg PO LITZY Stop: 06/30/22 20:59 Last Admin: 06/01/22 20:41 Dose: 40 mg Documented By: Admin: 05/31/22 20:38 Dose: 40 mg Documented By: RENO Clopidogrel Bisulfate (Clopidogrel Bisulfate 75 Mg Tab) 75 mg PO [facility] Stop: 07/01/22 08:59 Last Admin: 06/01/22 10:37 Dose: 75 mg Documented By: NACHO Cyanocobalamin (Cyanocobalamin (B-12) 500 Mcg Tablet) 500 mcg PO [facility] Stop: 07/01/22 08:59 Last Admin: 06/02/22 10:19 Dose: Not Given Documented By: Admin: 06/01/22 10:37 Dose: 500 mcg Documented By: NACHO Diltiazem HCl (Diltiazem Hcl 300 Mg Capcr) 300 mg PO DAILY [facility] Stop: 07/01/22 08:59 Last Admin: 06/02/22 10:19 Dose: Not Given Documented By: Admin: 06/01/22 07:40 Dose: 300 mg Documented By: NACHO Famotidine (Famotidine 40 Mg Tablet) 40 mg PO [facility] Stop: 06/30/22 08:59 Last Admin: 06/02/22 10:19 Dose: Not Given Documented By: Admin: 06/01/22 07:41 Dose: 40 mg Documented By: Admin: 05/31/22 09:39 Dose: 40 mg Documented By: NAKIA Furosemide (Furosemide 40 Mg Tab) 40 mg PO BID [facility] Stop: 06/30/22 20:59 Last Admin: 06/02/22 10:19 Dose: Not Given Documented By: Admin: 06/01/22 20:41 Dose: Not Given Documented By: Admin: 06/01/22 07:40 Dose: 40 mg Documented By: Admin: 05/31/22 20:38 Dose: 40 mg Documented By: RENO Hydralazine HCl (Hydralazine Hcl 20 Mg/Ml Vial) 10 mg IV Q8 PRN PRN Reason: sbp>150 or dbp>85 Stop: 07/02/22 08:26 Last Admin: 06/02/22 08:40 Dose: 10 mg Documented By: NACHO Hydralazine HCl (Hydralazine Hcl 20 Mg/Ml Vial) Confirm Administered Dose 20 mg .ROUTE .STK-MED ONE Stop: 06/02/22 08:32 Last Admin: 06/02/22 10:16 Dose: Not Given Documented By: NACHO Sodium Chloride (Nss 1000ml) 1,000 mls @ 125 mls/hr IV .Q8H LITZY Stop: 06/29/22 21:44 Last Infusion: 06/01/22 08:02 Dose: 0 mls/hr Documented By: Admin: 06/01/22 07:38 Dose: 125 mls/hr Documented By: Infusion: 06/01/22 07:38 Dose: 0 mls/hr Documented By: Admin: 05/31/22 23:27 Dose: 125 mls/hr Documented By: Infusion: 05/31/22 23:27 Dose: 125 mls/hr Documented By: Admin: 05/31/22 15:53 Dose: 125 mls/hr Documented By: Infusion: 05/31/22 15:53 Dose: 125 mls/hr Documented By: Infusion: 05/31/22 13:54 Dose: 125 mls/hr Documented By: Infusion: 05/31/22 11:48 Dose: 0 mls/hr Documented By: Admin: 05/31/22 06:45 Dose: 125 mls/hr Documented By: Infusion: 05/31/22 06:00 Dose: 0 mls/hr Documented By: RENO(2) Admin: 05/30/22 21:40 Dose: 125 mls/hr Documented By: RENO(2) Levetiracetam 1,000 mg/ Sodium (Chloride) 110 mls @ 440 mls/hr IV NOW STA Stop: 06/02/22 10:26 Last Infusion: 06/02/22 11:34 Dose: 0 mls/hr Documented By: Admin: 06/02/22 10:42 Dose: 440 mls/hr Documented By: NACHO Ioversol (Optiray 320 500ml) 116 ml IV ONCE ONE Stop: 05/30/22 19:25 Last Admin: 05/30/22 19:24 Dose: 116 ml Documented By: WARD Ioversol (Optiray 320 500ml) 114 ml IV ONCE ONE Stop: 05/30/22 21:08 Last Admin: 05/30/22 21:11 Dose: 114 ml Documented By: ASAF Metoprolol Tartrate (Metoprolol Tartrate 1 Mg/Ml Vial) 5 mg IV NOW STA Stop: 05/30/22 21:29 Last Admin: 05/30/22 21:32 Dose: 5 mg Documented By: MARY ANNE Metoprolol Tartrate (Metoprolol Tartrate 1 Mg/Ml Vial) Confirm Administered Dose 5 mg IV .STK-MED ONE Stop: 05/30/22 21:30 Last Admin: 05/30/22 21:32 Dose: Not Given Documented By: MARY ANNE Ondansetron HCl (Ondansetron Inj 2 Mg/Ml 2 Ml Vial) 4 mg IV NOW STA Stop: 05/30/22 17:21 Last Admin: 05/30/22 17:34 Dose: 4 mg Documented By: JEANIE Ondansetron HCl (Ondansetron Inj 2 Mg/Ml 2 Ml Vial) 4 mg IV NOW STA Stop: 05/30/22 21:37 Last Admin: 05/30/22 21:39 Dose: 4 mg Documented By: RENO(2) Potassium Chloride (Potassium Chloride Crtab 20 Meq Tabcr) 40 meq PO NOW STA Stop: 05/31/22 20:09 Last Admin: 05/31/22 20:37 Dose: 40 meq Documented By: RENO Tamsulosin HCl (Tamsulosin Hcl 0.4 Mg Cap) 0.4 mg PO DAILY [facility] Stop: 07/01/22 08:59 Last Admin: 06/02/22 10:19 Dose: Not Given Documented By: Admin: 06/01/22 07:40 Dose: 0.4 mg Documented By: NACHO Thiamine HCl (Thiamine Hcl 100 Mg Tab) 100 mg PO QAM [facility] Stop: 06/30/22 08:59 Last Admin: 06/02/22 10:19 Dose: Not Given Documented By: Admin: 06/01/22 07:41 Dose: 100 mg Documented By: Admin: 05/31/22 09:39 Dose: 100 mg Documented By: NAKIA Imaging Data Radiologist's Impression: Abdomen/Pelvis CTA 05/30/22 20:15 CT ANGIOGRAM OF THE ABDOMEN AND PELVIS CLINICAL HISTORY: Generalized abdominal pain. COMPARISON STUDY: No priors. TECHNIQUE: Following the IV administration of 114 cc of Optiray 320, CT angiogram of the abdomen and pelvis was performed from the lung bases the proximal femora. Images are reviewed in the axial, sagittal, and coronal planes. 3-D MIPS images are created and assessed. IV contrast was administered without complication. A dose lowering technique was utilized adhering to the principles of ALARA. The examination is compromised by motion artifact. FINDINGS: Lower chest: The heart is enlarged and without pericardial effusion. A pacemaker lead is in place. There is a tiny hiatal hernia. The lung bases are clear noting bibasilar scarring/atelectasis. Liver: The contrast-enhanced liver is normal in size, contour, and attenuation. There is no intrahepatic biliary ductal dilatation. Gallbladder: Not identified and presumed surgically absent. Spleen: Normal in size and attenuation. Pancreas: Unremarkable. Adrenal glands: Unremarkable. Kidneys: The contrast enhanced kidneys demonstrate marked cortical atrophy and are without hydronephrosis. The kidneys enhance indication symmetrically. Excre soniya IV contrast fills the renal collecting systems and ureters. Abdominal aorta and iliac arteries: There is advanced atherosclerotic calcification and ectasia of the abdominal aorta. The distal abdominal aorta measures up to 2.8 cm in diameter. The abdominal aorta is widely patent. No dissection is seen. The iliac arteries are widely patent bilaterally. Major branches of the abdominal aorta: The celiac trunk, superior mesenteric, and inferior mesenteric arteries are widely patent. An accessory left hepatic artery arises from the left gastric artery. The splenic artery is patent. Single bilateral renal arteries are widely patent. Bowel: There is mild colonic diverticulosis without CT evidence of acute diverticulitis. No bowel obstruction is seen. The appendix is not clearly visualized. Peritoneum: There is no intraperitoneal free air or abdominal ascites. There is a fat-containing umbilical hernia. Lymphadenopathy: None. Pelvic viscera: Evaluation of the pelvis is degraded by streak artifact from a right hip arthroplasty. The prostate gland is enlarged and heterogeneous. The bladder is filled with excreted IV contrast. The bladder wall appears thickened and trabeculated indicating chronic outlet obstruction. There are several bladder diverticula which measure up to 2.3 cm. Skeletal structures: The skeletal structures are osteopenic. No destructive bony lesions are seen. A right hip arthroplasty is in place. There are healed right pubic ring fractures. There are age indeterminate compression deformities of T10, T11, T12, L1, and L5. IMPRESSION: 1. There is advanced atherosclerotic calcification and ectasia of the abdominal aorta. 2. No dissection is seen. 3. Unremarkable CT angiogram of the major branches of the abdominal aorta. 4. No acute infectious or inflammatory findings are identified in the abdomen or pelvis. 5. Marked cardiomegaly and cardiac pacemaker. 6. There are age indeterminant thoracolumbar compression deformities as above. Clinical correlation will be required. 7. Colonic diverticulosis without CT evidence of acute diverticulitis. 8. Prostatomegaly with evidence of chronic bladder outlet obstruction. 9. Additional findings as above. ACT 112: Negative or not required by law. Electronically signed by: Gerardo Saez M.D. 05/31/2022 7:11 AM Chest CTA 05/30/22 20:15 CT ANGIOGRAPHY OF THE CHEST DISSECTION PROTOCOL CLINICAL HISTORY: Chest pain. Evaluate for aortic dissection. COMPARISON STUDY: Chest radiograph May 30, 2022. TECHNIQUE: Before and following the IV administration of 114 mL of Optiray, helical axial images of the chest were obtained. Maximal intensity projections and sagittal and coronal reformats were viewed on an independent 3D workstation. IV contrast was administered without complication. Automated exposure control was utilized for the study. A dose lowering technique was utilized adhering to the principles of ALARA. CT DOSE: 888.93 mGy.cm FINDINGS: Caliber of the thoracic aorta is normal. There is no intramural hematoma or thoracic aortic dissection. There is cardiomegaly. Left atrial appendage occluded device is in place. A left subclavian pacer is in place. There is pronounced dilatation of the left atrium and left ventricle. There is no pericardial effusion. Moderate dilatation of the central pulmonary arteries is noted. There is no pneumothorax thorax. Trace bilateral pleural effusions are noted. Mild interlobular septal thickening is noted. There is no consolidation to suggest pneumonia. Groundglass opacities favor atelectasis. Moderate T3 and T5 compression fractures are likely old. There are severe T10 and T11 compression fractures. These are age indeterminate but probably old. There is an age indeterminate moderate to severe L1 compression fracture. A 1.5 cm right upper pole renal calculus is present. IMPRESSION: 1. No thoracic aortic dissection. 2. Cardiomegaly with mild interstitial pulmonary edema and trace bilateral pleural effusions. 3. No consolidation to suggest pneumonia. 4. Multiple thoracic and upper lumbar spine compression fractures, as detailed above. 5. 1.5 cm right renal calculus. ACT 112: Negative or not required by law. Electronically signed by: Liang Cho M.D. 05/31/2022 8:38 AM Blood Pressure Blood Pressure Findings: Normal blood pressure Blood Pressure Disposition: did not require urgent referral Discharge Plan Visit Data Chief Complaint: Confusion ED Provider: Jenny Duran Discharge Problem: Internal carotid artery dissection, Hypoxia, Altered mental status Patient Disposition: Admitted As Inpatient Discharge Instructions Interventions: ED Discharge Assessment Last Done: 05/31/22 00:44 : Altered mental status Qualifiers: Altered mental status type: delirium Qualified Code(s): R41.0 - Disorientation, unspecified
[2022-05-31] MEDS: FAMOTIDINE 40 MG TABLET PO SCH (09:39)
[2022-05-31] MEDS: THIAMINE HCL 100 MG TAB PO SCH (09:39)
[2022-05-31] MEDS: ASPIRIN 81 MG ECTAB PO SCH (09:39)
--- NOTE | 2022-05-31 10:45 | Electroencephalogram ---
EEG Procedure Note Date of Service May 31, 2022 Start / End Times Start Time: 1029 End Time: [address] Jones History patient is a 81-year-old with history of episodic confusion (possible postictal state ). Home Medication List Medication Instructions Recorded Confirmed Type Unobtainable 05/30/22 05/30/22 History Inpatient Medication List Aspirin (Aspirin 81 Mg Ectab) 81 mg PO [facility] Stop: 06/30/22 08:59 Last Admin: 05/31/22 09:39 Dose: 81 mg Documented By: NAKIA Famotidine (Famotidine 40 Mg Tablet) 40 mg PO [facility] Stop: 06/30/22 08:59 Last Admin: 05/31/22 09:39 Dose: 40 mg Documented By: NAKIA Sodium Chloride (Nss 1000ml) 1,000 mls @ 125 mls/hr IV .Q8H [facility] Stop: 06/29/22 21:44 Last Admin: 05/31/22 06:45 Dose: 125 mls/hr Documented By: Infusion: 05/31/22 06:00 Dose: 0 mls/hr Documented By: Admin: 05/30/22 21:40 Dose: 125 mls/hr Documented By: RENO Thiamine HCl (Thiamine Hcl 100 Mg Tab) 100 mg PO [facility] Stop: 06/30/22 08:59 Last Admin: 05/31/22 09:39 Dose: 100 mg Documented By: NAKIA Discontinued Medications Ioversol (Optiray 320 500ml) 116 ml IV ONCE ONE Stop: 05/30/22 19:25 Last Admin: 05/30/22 19:24 Dose: 116 ml Documented By: WARD Ioversol (Optiray 320 500ml) 114 ml IV ONCE ONE Stop: 05/30/22 21:08 Last Admin: 05/30/22 21:11 Dose: 114 ml Documented By: ASAF Metoprolol Tartrate (Metoprolol Tartrate 1 Mg/Ml Vial) 5 mg IV NOW STA Stop: 05/30/22 21:29 Last Admin: 05/30/22 21:32 Dose: 5 mg Documented By: MARY ANNE Metoprolol Tartrate (Metoprolol Tartrate 1 Mg/Ml Vial) Confirm Administered Dose 5 mg IV .STK-MED ONE Stop: 05/30/22 21:30 Last Admin: 05/30/22 21:32 Dose: Not Given Documented By: MES Ondansetron HCl (Ondansetron Inj 2 Mg/Ml 2 Ml Vial) 4 mg IV NOW STA Stop: 05/30/22 17:21 Last Admin: 05/30/22 17:34 Dose: 4 mg Documented By: MNE Ondansetron HCl (Ondansetron Inj 2 Mg/Ml 2 Ml Vial) 4 mg IV NOW STA Stop: 05/30/22 21:37 Last Admin: 05/30/22 21:39 Dose: 4 mg Documented By: BS Description This is a 21 electrode EEG with a single channel dedicated to limited EKG. The electrodes were placed in accordance with the International 10-20 system. Interpretation The predominant background activity consists of an irregular 10 Hz activity, of up to 30 mV in amplitude,seen symmetrically distributed over the posterior head regions bilaterally. This activity attenuates nicely with eye-opening and other alerting procedures. Photic stimulation was performed and elicited no change in the background activity and no abnormal responses were seen. Hyperventilation was not performed . A mild amount of muscle and movement artifact activity contaminated the recording, from time to time, but did not hinder interpretation to any significant degree. Throughout the waking portion of the recording, no focal abnormalities, abnormal slow activity, or potentially epileptogenic discharges are seen. The patient entered the drowsy state with no further activation. In summary, this EEG was normal during wakefulness and drowsiness. No focal abnormalities, potentially epileptogenic discharges, or abnormal slow activity was seen. Clinical Correlation The abscence of potentially epileptogenic activity does not exclude a seizure disorder, since interictally, EEGs can be normal. Clinical correlation is required. [facility] EEG Procedure Codes Indication for Procedure (1) Encephalopathy acute: Neurology Neurology: 22091 EEG include record awake & drowsy
[2022-05-31] MEDS ORDERED: HYDROCODONE/ACETAMOPHEN 5/325MG TAB PO PRN (15:58)
--- NOTE | 2022-05-31 16:09 | Hospitalist Progress Note ---
Date of Service May 31, 2022 Assessment & Plan (1) Altered mental status: Plan: * Nearly resolved. * Now able to provide detailed health information compared to yesterday's notes. * No new medications or substances. Did start taking Fosamax recently, but likely not contributing. * CT Brain w/o acute findings. * MRI brain pending. * EEG without findings, but patient was not with symptoms at the time. * Thankfully, his symptoms have greatly improved. * We will await his MRI results. * Restart home Rx. (2) Hypoxia: Plan: * Of questionable etiology at this point. * CXR/CTA w/o acute findings. * Has been titrated down on O2 at this point. * Will titrate down to off if able. (3) Internal carotid artery dissection: Plan: * Spoke with radiology - they appear chronic. (4) A-fib: Plan: * Follows with Cardiology in [place] * Continue Cardizem * Reports h/o Watchman procedure - no need for anticoagulation (5) HTN (hypertension): Plan: * Continue Cardizem/Lasix as tolerated. (6) HLD (hyperlipidemia): Plan: * Continue atorvastatin (7) H/O: CVA (cerebrovascular accident): Plan: * Continue Aspirin Admission and Anticipated Discharge Date Admission Date: May 30, 2022 Subjective Patient was seen and evaluated bedside today. He reports that his mental status has improved. He provides a history of his outpatient medications and is able to give me specifics over which medications are most important to his ongoing health. He does note that he has had a prior history of CVA approximately 10 years ago and has some residual overall weakness with RIGHT greater than left weakness as well. He notes no similar symptoms during this presentation. Interestingly, he states that he has little to no recollection of a lot of the events of yesterday. He does remember feeling extremely dizzy and lightheaded though throughout the day. Thankfully, his mental status continues to improve. He is requesting to be placed back on his home medications as they have been strictly balanced over the years. Review of Systems Review of Systems: A complete 10 point review of systems was reviewed with the patient with pertinent positives and negatives as per history of present illness. All else were negative. Physical Exam Physical Exam: VITAL SIGNS - Vital signs and nursing notes were reviewed. GENERAL - 81-year-old male appearing his stated age who is in no acute distress. Communicates well with provider and answers questions appropriately. HEAD - Normocephalic, Atraumatic. EYES - PERRL with EOMI bilaterally. Sclera anicteric. EARS - No deformities of external structures noted on gross examination bilaterally. NOSE - Midline and without cyanosis. No epistaxis or purulent drainage noted. MOUTH/OROPHARYNX - Without perioral cyanosis. Buccal mucosa pink and dry. NECK - Neck with FROM. Supple to palpation. LUNGS - Chest wall symmetric without accessory muscle use, intercostals retractions, or central cyanosis. Normal vesicular breath sounds CTA B/L. No wh eezes, rales, or rhonchi appreciated. CARDIAC - RRR with S1/S2. No murmur, rubs, or gallops appreciated. ABDOMEN - Abdominal contour flat without pulsations or visible masses. BS normoactive all four quadrants. No tenderness, palpable masses, hepatosplenomegaly, or ascites noted. EXTREMITIES - No pretibial edema present. +3/5 radial and dorsalis pedis pulses palpated throughout. FROM of upper and lower extremities. +5/5 strength noted in UE/LE bilaterally. NEUROLOGIC - Cranial nerves II through XII grossly intact. Sensory intact to light touch throughout. Patient able to perform rapid alternating movements appropriately. PSYCH - A&Ox3 and cooperates fully with examiner. Pt is very pleasant and interacts well with examiner. Results & Data Results & Data ([facility]) Vital Signs (Past 12 Hours) Vital Signs Temp Pulse Pulse Resp BP BP Pulse Ox 05/31/22 14:47 36.6 C 60 18 152/91 H 100 05/31/22 14:00 60 19 155/112 H 98 05/31/22 06:30 60 16 128/77 95 05/31/22 06:15 60 19 136/80 93 05/31/22 06:00 60 16 122/62 98 05/31/22 05:45 60 16 124/63 98 05/31/22 05:30 60 17 121/65 98 05/31/22 05:15 60 17 135/67 98 05/31/22 05:00 60 14 126/61 97 05/31/22 04:30 60 23 127/64 97 05/31/22 04:15 129/65 05/31/22 04:15 60 12 96 05/31/22 04:00 60 13 122/65 96 O2 Del Method O2 Flow Rate 05/31/22 14:47 Nasal Cannula 4 05/31/22 14:00 Nasal Cannula 4 05/31/22 06:30 05/31/22 06:15 05/31/22 06:00 05/31/22 05:45 05/31/22 05:30 05/31/22 05:15 05/31/22 05:00 05/31/22 04:30 05/31/22 04:15 05/31/22 04:15 05/31/22 04:00 (1) Altered mental status Altered mental status type: delirium Qualified Code(s): R41.0 - Disorientation, unspecified
--- NOTE | 2022-05-31 16:20 | Magnetic Resonance Report ---
MR brain wo con CLINICAL HISTORY: Confusion TECHNIQUE: Multiplanar and multisequence MR images of the brain were obtained without intravenous con trast. Comparison: Comparison is made to CTA head and neck 05/30/2022 FINDINGS: There is a focus of restricted diffusion in the right parietal lobe with a small amount of edema. Foc i of T2 and FLAIR hyperintensity are noted in the paraventricular areas consistent with chronic small vessel ischemic disease. Given septum pellucidum is seen. Ex vacuo ventriculomegaly and sulcal enlar gement is noted compatible with diffuse encephalomalacia. No mass is seen. There is no mass effect or midline shift. There is no evidence of acute intraparenchymal hemorrhage. No extra axial fluid colle ctions are seen. The corpus callosum, pituitary gland, and cerebellar tonsils appear grossly unremark able. Flow voids of the major intracranial arterial vessels are identified. The imaged portions of the para nasal sinuses, mastoid air cells, and orbits are unremarkable. IMPRESSION: 1. There is a tiny infarct in the right parietal lobe with associated edema without significant mass effect or midline shift. No hemorrhagic transformation is seen. 2. Extensive diffuse age-related encephalomalacia and white matter disease noted. ACT 112: Negative or not required by law. Electronically signed by: Darrin Rosales M.D. 05/31/2022 4:18 PM
[2022-05-31] MEDS ORDERED: POTASSIUM CHLORIDE CRTAB 20 MEQ TABCR PO STA (20:08)
[2022-05-31] MEDS: ATORVASTATIN 40 MG TAB PO SCH (20:38)
[2022-05-31] MEDS: FUROSEMIDE 40 MG TAB PO SCH (20:38)
--- NOTE | 2022-05-31 21:33 | Electrocardiogram Report ---
Test Reason : Blood Pressure : / mmHG Vent. Rate : 060 BPM Atrial Rate : 375 BPM P-R Int : 000 ms QRS Dur : 148 ms QT Int : 450 ms P-R-T Axes : 000 -83 083 degrees QTc Int : 450 ms Poor data quality, interpretation may be adversely affected Ventricular-paced rhythm Abnormal ECG No previous ECGs available Confirmed by Marquis Mcgarry ([id number]) on 05/31/2022 9:32:57 PM Referred By: REFERRED SELF Confirmed By:Marquis Mcgarry
--- NOTE | 2022-06-01 00:45 | Billing Data ---
Date of Service June 01, 2022 Coding Level of Care Code 17189 INT INP/OBS CARE
[2022-06-01 07:07] LABS: Basophils # (auto) 0.04 K/uL (0-0.2); Basophils % (auto) 0.5 %; Eosinophils # (auto) 0.06 K/uL (0-0.50); Eosinophils % (auto) 0.8 %; Hematocrit (blood only) 38.9 % (40.1-51.0); Hemoglobin 13.7 g/dl (14.0-18.0); Immature Granulocytes # (auto) 0.03 K/uL (0.00-0.02); Immature Granulocytes % (auto) 0.4 %; Lymphocytes # (auto) 1.28 K/uL (1.2-3.4); Lymphocytes % (auto) 17.2 %; Mean Corpuscular Hemoglobin 34.9 pg (25.0-34.0); Mean Corpuscular Hgb Conc 35.2 g/dL (32.0-36.0); Mean Corpuscular Volume 99.2 fL (80.0-100.0); Mean Platelet Volume 11.7 fL (9.4-12.4); Monocytes # (auto) 0.74 K/uL (0.24-0.82); Monocytes % (auto) 9.9 %; Neutrophils % (auto) 71.2 %; Platelet Count 151 K/uL (130-400); Red Blood Count 3.92 M/uL (4.63-6.08); White Blood Count 7.45 K/ul (4.8-10.8)
[2022-06-01 07:34] LABS: BUN Creatinine Ratio 17.5 (10-20); Calcium 8.1 mg/dl (8.5-10.1); Creatinine Clr Calc Pharmacy 63.8 ml/min; Est GFR (African American) 85.7 ml/min; Est GFR (Non-African American) 73.9 ml/min; Magnesium 1.8 mg/dl (1.7-2.4); Phosphorus 2.8 mg/dl (2.5-4.9); Potassium 3.5 mmol/L (3.5-5.1)
[2022-06-01] MEDS: SODIUM CHLORIDE 0.9% 1000ML 1,000 ML IV SCH (07:38)
[2022-06-01] MEDS: dilTIAZem HCL 300 MG CAPCR PO SCH (07:40)
[2022-06-01] MEDS: FUROSEMIDE 40 MG TAB PO SCH ×2 (07:40→20:41)
[2022-06-01] MEDS: TAMSULOSIN HCL 0.4 MG CAP PO SCH (07:40)
[2022-06-01] MEDS: ASPIRIN 81 MG ECTAB PO SCH (07:41)
[2022-06-01] MEDS: THIAMINE HCL 100 MG TAB PO SCH (07:41)
[2022-06-01] MEDS: FAMOTIDINE 40 MG TABLET PO SCH (07:41)
--- NOTE | 2022-06-01 08:32 | Neurology Consultation ---
Date of Consultation June 01, 2022 Assessment & Plan (1) Acute CVA (cerebrovascular accident): (2) Encephalopathy acute: (3) B12 deficiency: (4) Internal carotid artery dissection: (5) Chronic cerebral ischemia: (6) HTN (hypertension): (7) HLD (hyperlipidemia): Plan this patient has had a very small right posterior parietal deep acute CVA likely on May 30. He had some acute confusion /encephalopathy gait disturbance and some word-finding difficulty. The patient has improved clinically and is not really confused or encephalopathic currently and his speech and language have cleared back to baseline. He has no focal weakness. The upgoing toes on the right are likely old and on the left may be new. patient does have some mild postural and action tremor bilaterally, noted on exam which is old and nonspecific. Patient has B12 deficiency which could cause gait disturbance and and cognitive issues. Internal carotid artery dissection was noted bilaterally but this is old. He has old chronic small vessel ischemic disease of an extensive nature. Hypertension, dyslipidemia, our major risk factors for stroke and small vessel ischemic disease. patient also drinks alcohol fairly heavily. This could lead to issues with cognition and his gait. Recommendations: 1. clopidogrel 75 mg daily instead of aspirin. He could be on both for 2-3 weeks and then clopidogrel alone. 2. replace B12 aggressively. 3. Discontinue alcohol use if possible. 4. increase activity as able and consider physical, occupational, and speech therapy consult. 5. if not already ordered, consider echocardiogram, fasting lipid profile, and hemoglobin A1c. Overall, I spent a total of 75 minutes with this case including review of records, review of MRI films, direct evaluation the patient bedside, and discussion of the case with the patient and RN at bedside, and Dr. Mcgowan including differential diagnosis and treatment options. History of Present Illness Reason for Consultation: Patient is a 81-year-old, we was asked to see the request of Ronnell Cheng PA-C Requesting Physician: Ronnell Cheng PA-C Attending Physician: Hamilton Mcgowan MD History of Present Illness this patient has a history of hypertension and dyslipidemia with cardiomegaly and dysrhythmia, post pacemaker 1 year ago. 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 This improved and he was left with a little bit of right foot weakness chronically. He has been taking 81 mg aspirin tablet daily. This patient tells me that over the last 2 years he has had a lot of deterioration with spine pain (known compression fractures ), gait issues, and perhaps some cognitive problems of a mild nature. patient got up in the morning of May 30 feeling a little bit nauseated and unstable. Nevertheless he got himself dressed in 8. he drove from [place] (where he resides ) to [facility] in [place] where his has been admitted since May 29. he drove fairly well. When he got out of the car around 11:00 a.m. he noted that he was feeling worse being unsteady in his gait and having a little bit of confusion and word-finding problems. [facility] and [facility]. His O2 saturation was 88% on room air. He arrived to the emergency room May 30 at 4:14 p.m., with a temperature of 36.8, pulse 60 and regular, respiratory rate 20, blood pressure 150/89, and O2 saturation 98% on oxygen. He was described as having a little bit of word-finding difficulty and looked weak in general. He may have been slightly confused. CBC and Chem profile were unremarkable except for glucose of 183. TSH and magnesium were normal. Urinalysis was unremarkable. An EEG was normal during wakefulness and drowsiness. CT scan of the head showed no acute changes. There were chronic 14 mm dissections of the internal carotid arteries bilaterally, not extending into the intracranial portion. There are no other significant vascular issues in the head or neck. MRI of the brain showed a small deep posterior right parietal stroke with moderate to extensive old small vessel ischemic disease and generalized atrophy. I reviewed these films. Today the patient feels much improved and close to baseline. He is not confused and his speech is improved. He does not feel weak or numb. He has no vision problems. CBC and Chem profile were unremarkable today. B12 was low at 177. Allergies Allergy/AdvReac Type Severity Reaction Status Date / Time No Known Allergies Allergy Unverified 05/30/22 20:25 Home Medications Medication Instructions Recorded Confirmed Type atorvastatin 40 mg tablet 40 mg PO ONCE HS 05/31/22 05/31/22 History cholecalciferol (vitamin D3) 50 PO DAILY 05/31/22 History mcg (2,000 unit) capsule diltiazem HCl 300 mg 300 mg PO DAILY 05/31/22 05/31/22 History capsule,extended release 24 hr furosemide 40 mg tablet 40 mg PO BID 05/31/22 05/31/22 History hydrocodone 5 mg-acetaminophen 325 1 tab PO Q8H PRN Severe Pain 05/31/22 05/31/22 History mg tablet (Scale Score 7-10) prednisone 10 mg tablet mg 05/31/22 History tamsulosin 0.4 mg capsule 0.4 mg PO DAILY 05/31/22 05/31/22 History Patient History Medical History A-fib HTN (hypertension) Hypercholesterolemia Family History Mother , age 59 of an VA Myocardial infarction Father , age 91 with colon cancer Colorectal cancer Social History Smoking Status: Never smoker Hx Alcohol Use: Yes Alcohol type: beer and hard liquor Alcohol Intake Frequency: 4 or More x per/Week Alcohol Intake Frequency Comment: 1-2 beers per day plus a whiskey (or Gin) in the evening. Hx Substance Use: No Preferred Language: Pashto Communication Ability: Effective Hat Measurer Required: No Beliefs That Will Affect Care: None Current Living Situation: Alone current occupational status: retired current occupation: former computer applications engineer Feels Safe at Home: Yes Assistive Devices: Glasses and Walker Review of Systems Constitutional: no fever, no fatigue and no weakness Eyes: no diplopia, no eye pain and no worsening vision Ear, Nose, Mouth, Throat: no ear pain, no tinnitus, no hearing loss, no dizziness, no snoring, no hoarseness and no dysphagia Respiratory: no cough and no dyspnea Cardiovascular: no chest pain, no palpitations and no lightheadedness Gastrointestinal: no abdominal pain, no nausea and no vomiting Musculoskeletal: + back pain; no neck pain, no radicular pain, no joint pain and no myalgia Integumentary: no rash and no lesions Neurologic: + gait abnormality and + memory loss; no localized weakness, no generalized weakness, no tingling, no numbness, no tremor(s), no abnormal movements, no headache(s), no abnormal speech and no confusion Psychiatric: no depression, no irritability, no anxiety, no difficulty concentrating, no confusion and no hallucinations Endocrine: no fatigue and no flushing Hematologic / Lymphatic: no easy bleeding and no easy bruising Allergy / Immunological: no urticaria and no problem reported Exam (Neuro) Physical Exam: The patient is right-handed. The patient is awake, alert, and attentive. Speech is normal without any aphasia or dysarthria. The patient can name objects, repeat phrases, and has normal spontaneous speech. he can read words and phrases. Mentation and thought processes are intact, with orientation to person, place and time, and normal fund of knowledge. Attention and concentration are normal. Mood and affect are normal and appropriate. General appearance and grooming are normal. Short and long-term memory are intact To conversation. Pupils are 3 mm bilaterally and reactive to light. Extraocular eye muscles are intact without nystagmus. Visual acuity and visual alfaro seem normal grossly to confrontation. There are no deficits to sensation in the face in all 3 distributions of the fifth cranial nerve bilaterally. Corneal reflexes are positive bilaterally. Facial strength and symmetry was normal bilaterally. Hearing seems normal bilaterally. Palate moves well without asymmetry. There is normal sternocleidomastoid and trapezius (shoulder shrug) strength bilaterally. Tongue is midline with good strength bilaterally. Neck has a full range of motion without discomfort. There are no cervical bruits bilaterally. There are no cranial or ocular bruits. Heart is without murmur. There is a regular rhythm and rate. Cervical, thoracic, and lumbar spine are nontender to palpation. he has significant kyphosis of the thoracic spine. Gait Is not tested but stance sitting up in bed is normal. With outstretched arms there is no drift. There are no resting tremors. The patient has mild action tremor bilaterally. There is no ataxia with finger to nose testing. There is good facility in the hands. No other abnormal involuntary movements are noted. Motor strength is 5/5 diffusely in the arms bilaterally including deltoids, biceps, triceps, brachioradialis, wrist flexors and extensors, peeler operator, and intrinsic hand muscles. Motor strength is 5/5 diffusely in the legs bilaterally including hip flexors, quadriceps, hamstrings, gastrocnemius, tibialis anterior, tibialis posterior, and Peroneii muscles. Toe extensors are normal and there is good bulk in the extensor digitorum brevis muscles bilaterally. The limbs have good tone without rigidity or spasticity. There is no atrophy noted in the muscles. Muscle bulk is normal, there is no tenderness to palpation, no myotonia to percussion, and no fasciculations seen. Sensory examination is intact to touch and pin throughout all 4 limbs diffusely. Reflexes are 2/4 in the biceps, triceps, brachioradialis, and quadriceps tendons bilaterally. Achilles tendon reflexes are trace to absent bilaterally. There is no clonus bilaterally. Toes are upgoing with plantar stimulation bilaterally. Peripheral pulses are present and of normal quality distally in all 4 limbs. There is no peripheral edema noted in the limbs. Results & Data ([facility]) Vital Signs (Past 12 Hours) Vital Signs Temp Pulse Pulse Pulse Resp BP Pulse Ox 06/01/22 07:59 36.4 C L 62 18 150/81 H 95 06/01/22 07:14 60 06/01/22 04:13 36.6 C 61 18 145/78 H 97 05/31/22 23:43 36.7 C 66 18 144/85 H 95 05/31/22 22:15 60 05/31/22 22:10 O2 Del Method O2 Flow Rate 06/01/22 07:59 Room Air 06/01/22 07:14 06/01/22 04:13 Nasal Cannula 2 05/31/22 23:43 Nasal Cannula 2 05/31/22 22:15 05/31/22 22:10 Nasal Cannula 2 PG Care Time/CCT Total # of Minutes Spent Total Time Spent with Patient: Total time spent is greater than 50% in coordination of care (as documented) at patient's floor/unit and/or counseling patient: Coding Level of Care Code 58336 INT INP/OBS CARE 3/75MIN Diagnoses Acute CVA (cerebrovascular accident) I63.9 Encephalopathy acute G93.40 B12 deficiency E53.8 Internal carotid artery dissection I77.71 Chronic cerebral ischemia I67.82 HTN (hypertension) I10 HLD (hyperlipidemia) E78.5 Time Spent (min) 75
--- NOTE | 2022-06-01 09:49 | Progress Note ---
Date of Service June 01, 2022 Assessment & Plan (1) Altered mental status: Plan: * Resolved. * Reports that he did have a little trouble this morning when the kitchen staff was "talking to fast," but otherwise reports that he is near his baseline. * MRI Brain c/w RIGHT parietal lobe infarct. * EEG unremarkable. * Thankfully, his symptoms have greatly improved. * Echo pending this AM. * Plavix/B12 added per Neuro recommendations. * PT/OT evaluations pending. Altered mental status type: delirium Qualified Code(s): R41.0 - Disorientation, unspecified (2) Hypoxia: Plan: * Of questionable etiology at this point. * Likely related to his degree of confusion, etc. * CTA chest unremarkable. * Has since been titrated off O2 to room air. (3) Internal carotid artery dissection: Plan: * Spoke with radiology - they appear chronic. 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 (6) HLD (hyperlipidemia): Plan: * Continue atorvastatin * Will add AM fasting lipid panel. (7) H/O: CVA (cerebrovascular accident): Plan: * Continue Aspirin * Plavix added as well per luiz (8) Alcohol use: Plan: * Reports drinking a "beer or 2" with dinner then transitioning to whisky the rest of the night. Does not quantify amounts, but has what sounds to be >5-6 drinks per night. * Reports no prior issues with withdrawal symptoms in the past, however he has been drinking nightly for the past few years. * He recognizes that he probably drinks more than he should. * Educated on the concerns of significant alcohol use, especially with the risk of falls. * Will add CIWA scale for closer monitoring. * Receiving thiamine/B12 now. Admission and Anticipated Discharge Date Admission Date: May 30, 2022 Subjective Patient is seen and evaluated today. He reports that he had a "rough night" as he had to use the bathroom frequently. Otherwise, he reports that he is been feeling better and has had improvement in his cognition as well as speech. He did have dinner last evening and breakfast this morning. He was seen by neurology this morning and had an echocardiogram performed as well. Patient does report that he drinks several alcoholic beverages every night including beer and whiskey. He does not quantify, but states that he does drink more than he probably should. He reports that he has never experienced withdrawal symptoms in the past during extended stay hospitalizations, etc. He does report that his been "years" since he has not drank regularly every evening. Review of Systems Review of Systems: A complete 10 point review of systems was reviewed with the patient with pertinent positives and negatives as per history of present illness. All else were negative. Physical Exam Physical Exam: VITAL SIGNS - Vital signs and nursing notes were reviewed. GENERAL - 81-year-old male appearing his stated age who is in no acute distress. Communicates well with provider and answers questions appropriately. HEAD - Normocephalic, Atraumatic. EYES - PERRL with EOMI bilaterally. Sclera anicteric. NECK - Neck with FROM. LUNGS - Chest wall symmetric without accessory muscle use, intercostals retractions, or central cyanosis. Normal vesicular breath sounds CTA B/L. No wheezes, rales, or rhonchi appreciated. CARDIAC - RRR with S1/S2. No murmur, rubs, or gallops appreciated. ABDOMEN - Abdominal contour flat without pulsations or visible masses. BS normoactive all four quadrants. No tenderness, palpable masses, hepatosplenomegaly, or ascites noted. EXTREMITIES - No pretibial edema present. +3/5 radial and dorsalis pedis pulses palpated throughout. FROM of upper and lower extremities. +5/5 strength noted in UE/LE bilaterally. NEUROLOGIC - Cranial nerves II through XII grossly intact. Sensory intact to light touch throughout. Patient able to perform rapid alternating movements appropriately. PSYCH - A&Ox3 and cooperates fully with examiner. Pt is very pleasant and interacts well with examiner. Results & Data ([facility]) Vital Signs (Past 12 Hours) Vital Signs Temp Pulse Pulse Pulse Resp BP Pulse Ox 06/01/22 07:59 36.4 C L 62 18 150/81 H 95 06/01/22 07:14 60 06/01/22 04:13 36.6 C 61 18 145/78 H 97 05/31/22 23:43 36.7 C 66 18 144/85 H 95 05/31/22 22:15 60 05/31/22 22:10 O2 Del Method O2 Flow Rate 06/01/22 07:59 Room Air 06/01/22 07:14 06/01/22 04:13 Nasal Cannula 2 05/31/22 23:43 Nasal Cannula 2 05/31/22 22:15 05/31/22 22:10 Nasal Cannula 2 PG Care Time/CCT Total # of Minutes Spent Total Time Spent with Patient: Total time spent is greater than 50% in coordination of care (as documented) at patient's floor/unit and/or counseling patient: Coding Level of Care Code 35044 SUB INP/OBS CARE 3/50MIN Diagnoses Altered mental status R41.0 Altered mental status type: delirium Hypoxia R09.02 Internal carotid artery dissection I77.71 A-fib I48.91 HTN (hypertension) I10 HLD (hyperlipidemia) E78.5 H/O: CVA (cerebrovascular accident) Z86.73 Alcohol use Z78.9 Time Spent (min) 35
[2022-06-01] MEDS: CLOPIDOGREL BISULFATE 75 MG TAB PO SCH (10:37)
[2022-06-01] MEDS: CYANOCOBALAMIN (B-12) 500 MCG TABLET PO SCH (10:37)
--- NOTE | 2022-06-01 14:08 | XCELERA ---
[id number]
[2022-06-01] MEDS: ATORVASTATIN 40 MG TAB PO SCH (20:41)
[2022-06-02] MEDS: dilTIAZem HCL 300 MG CAPCR PO SCH ×2 (07:04→10:19)
[2022-06-02] MEDS: FUROSEMIDE 40 MG TAB PO SCH ×2 (07:04→10:19)
[2022-06-02] MEDS: ASPIRIN 81 MG ECTAB PO SCH (07:04)
[2022-06-02] MEDS: CYANOCOBALAMIN (B-12) 500 MCG TABLET PO SCH ×2 (07:04→10:19)
[2022-06-02] MEDS: FAMOTIDINE 40 MG TABLET PO SCH ×2 (07:05→10:19)
[2022-06-02] MEDS: THIAMINE HCL 100 MG TAB PO SCH ×2 (07:05→10:19)
[2022-06-02] MEDS: TAMSULOSIN HCL 0.4 MG CAP PO SCH ×2 (07:05→10:19)
[2022-06-02] MEDS: CLOPIDOGREL BISULFATE 75 MG TAB PO SCH (07:05)
--- NOTE | 2022-06-02 07:17 | Hospitalist Progress Note ---
Date of Service June 02, 2022 Assessment & Plan (1) Altered mental status: Plan: * encephalopathy * MRI Brain c/w RIGHT parietal lobe infarct. * EEG unremarkable. * symptoms have greatly improved. * Echo unremarkable * Plavix/B12 added per Neuro recommendations. * PT/OT evaluations pending. (2) Hypoxia: Plan: * resolved * CTA chest unremarkable. (3) Internal carotid artery dissection: Plan: * Spoke with radiology - they appear chronic. 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 (6) HLD (hyperlipidemia): Plan: * Continue atorvastatin * AM fasting lipid panel. (7) H/O: CVA (cerebrovascular accident): Plan: * Continue Aspirin * Plavix added as well per luiz (8) Alcohol use: Plan: * Reports drinking a "beer or 2" with dinner then transitioning to whisky the rest of the night. Does not quantify amounts, but has what sounds to be >5-6 drinks per night. * Reports no prior issues with withdrawal symptoms in the past, however he has been drinking nightly for the past few years. * He recognizes that he probably drinks more than he should. * Educated on the concerns of significant alcohol use, especially with the risk of falls. * awss * Receiving thiamine/B12 now. Admission and Anticipated Discharge Date Admission Date: May 30, 2022 Results & Data Results & Data ([facility]) Vital Signs (Past 12 Hours) Vital Signs Temp Pulse Pulse Resp BP Pulse Ox O2 Del Method 06/02/22 03:15 94 Room Air 06/02/22 02:43 97.7 F 60 18 122/81 91 Room Air 06/01/22 23:05 61 06/01/22 23:42 97.5 F L 61 18 155/93 H 94 Room Air 06/01/22 19:57 98.1 F 61 18 114/80 95 Room Air PG Care Time/CCT Total # of Minutes Spent Total Time Spent with Patient: Total time spent is greater than 50% in coordination of care (as documented) at patient's floor/unit and/or counseling patient: Coding Diagnoses Altered mental status R41.0 Altered mental status type: delirium Hypoxia R09.02 Internal carotid artery dissection I77.71 A-fib I48.91 HTN (hypertension) I10 HLD (hyperlipidemia) E78.5 H/O: CVA (cerebrovascular accident) Z86.73 Alcohol use Z78.9 (1) Altered mental status Altered mental status type: delirium Qualified Code(s): R41.0 - Disorientation, unspecified
--- NOTE | 2022-06-02 08:11 | CT Scan Report ---
CT head/brain wo con CLINICAL HISTORY: 81 years-old Male with eval for hemorrahge. Acute headache TECHNIQUE: Multiple axial CT images of the head were obtained without contrast. A dose lowering tech nique was utilized adhering to the principles of ALARA. CT DOSE: 884.08 mGy.cm COMPARISON: Brain MRI May 31, 2022, head CT May 30, 2022 FINDINGS: There is an acute intraparenchymal hemorrhage within the left temporal parietal lobe measuring 6.2 x 3.0 cm with surrounding vasogenic edema and local mass effect, new from prior. No significant midline shift. Partial effacement of the temporal horn left lateral ventricle. The basilar cisterns appear p reserved. No hydrocephalus. Involutional changes with chronic microvascular ischemic disease. Cerebra l vascular calcifications. The tiny acute infarct within the periventricular aspect of the right livia etal lobe on image 21 series 2 redemonstrated measuring 1.2 cm. The calvarium is intact. The paranasal sinuses, mastoid air cells, and middle ear cavities are clear . IMPRESSION: 1. Acute intraparenchymal hemorrhage in the left temporal parietal lobe measures up to 6 cm with surr ounding vasogenic edema and mass effect. 2. No significant midline shift, hydrocephalus or herniation. 3. Small acute infarct in the periventricular right parietal lobe redemonstrated. Findings were discussed with Dr. Mcgowan on 06/02/2022 at 8:05 AM. ACT 112: Negative or not required by law. The above report was generated using voice recognition software. It may contain grammatical, syntax o r spelling errors. Electronically signed by: Rolando Akbar M.D. 06/02/2022 8:09 AM
[2022-06-02] MEDS ORDERED: hydrALAZINE HCL 20 MG/ML VIAL IV PRN (08:27)
[2022-06-02] MEDS ORDERED: hydrALAZINE HCL 20 MG/ML VIAL ONE (08:31)
[2022-06-02 08:58] LABS: Basophils # (auto) 0.05 K/uL (0-0.2); Basophils % (auto) 0.7 %; Eosinophils # (auto) 0.16 K/uL (0-0.50); Eosinophils % (auto) 2.2 %; Hematocrit (blood only) 42.4 % (40.1-51.0); Immature Granulocytes # (auto) 0.03 K/uL (0.00-0.02); Immature Granulocytes % (auto) 0.4 %; Lymphocytes # (auto) 1.87 K/uL (1.2-3.4); Mean Corpuscular Hgb Conc 35.4 g/dL (32.0-36.0); Mean Corpuscular Volume 99.1 fL (80.0-100.0); Mean Platelet Volume 11.8 fL (9.4-12.4); Monocytes # (auto) 0.74 K/uL (0.24-0.82); Monocytes % (auto) 10.3 %; Neutrophils # (auto) 4.34 K/uL (1.4-6.5); Neutrophils % (auto) 60.4 %; Platelet Count 151 K/uL (130-400); RDW Coefficient of Variation 12.5 % (11.5-14.5); RDW Standard Deviation 45.6 fL (36.4-46.3); Red Blood Count 4.28 M/uL (4.63-6.08); White Blood Count 7.19 K/ul (4.8-10.8)
--- NOTE | 2022-06-02 09:09 | Discharge Summary ---
Date of Service June 02, 2022 Admission HPI Per Admitting Provider Corey is a 81 year old male w/ unclear past medical history presented to the ED from his 's physical rehabilitation facility for confusion. Patient states he has a difficult time remembering the details of things past and present at the current time however said he came up from [facility] earlier today to visit his in her rehabilitation facility. He states that he drove up earlier today feeling a little out of character, not feeling too well, drove to the facility, and had started to get weak and go down in the facility. Staff helped him up at that time and called EMS to bring him to the hospital. He has a hard time remembering any past medical history, however states that he did have a possible stroke event 10 years prior resulting in some residual weakness bilaterally, more so on the right side. He states he had a past discovery of vessel issue in the neck for 10 years back as well for which he did not undergo any surgical intervention. He says he is on medications for his heart but unsure which ones, although he did endorse being on a daily aspirin. He confirms the presence of a pacemaker and says that it was put in place 1.5 years ago however unclear on why it was placed. He denies any fevers, chills, shortness of breath, chest pain, vomiting; he does have nausea. He has had some diarrhea over the past few days but denies consuming any raw, undercooked food or seafood. He states he usually drinks about 1-2 beers during dinner time, may have another beer while reading, followed by a glass or two of whiskey that may be partially diluted. This is a daily occurrence for him and the last drink he had was whiskey yesterday night. He denies any history of smoking or drug use. Principal Diagnosis acute left temporal hemorrhagic stroke recent ischemic stroke small right parietal alcohol use Discharge Exam Pt is awake and alert although drowsy,has no focal deficits now, does have hor izontal nystagmus Discharge Data Allergies Allergy/AdvReac Type Severity Reaction Status Date / Time No Known Allergies Allergy Unverified 05/30/22 20:25 Consultations 05/30/22 22:35 ED Decision to Admit Stat 05/31/22 16:27 Consult Neurology Routine Ordered Studies Chest X-Ray 05/30/22 17:09 XR chest 1V portable CLINICAL HISTORY: weakness TECHNIQUE: Single frontal radiograph of the chest was obtained. Comparison: None available at the time of this dictation. FINDINGS: Pacemaker is noted. Cardiomegaly is noted. The lungs are clear. No evidence of p leural effusion or pneumothorax. IMPRESSION: No acute chest disease. Cardiomegaly is noted. ACT 112: Negative or not required by law. Electronically signed by: Darrin Rosales M.D. 05/30/2022 5:[address] 05/30/22 17:10 CT head/brain wo con CLINICAL HISTORY: AMS Technique: Contiguous axial CT images of the head were acquired from the base of the skull to the vertex without intravenous contrast administration. Images were viewed in brain, subdural and bone windows. Automated dose lowering techniques and/or adjustment according to patient size were utilized for this exam. Comparison: None available at the time of this dictation. Findings: Areas of decreased attenuation are present in the periventricular and subcortical white matter bilaterally consistent with small vessel ischemic disease. Generalized cerebral atrophy with commensurate enlargement of the ventricles, sulci, and cisterns is also present. There is no acute intracranial hemorrhage or evidence of acute territorial infarction. No shift of the midline structures, mass effect, or extra-axial abnormalities are shown. Atherosclerotic calcifications are present in the intracranial segments of the internal carotid arteries. Imaged portions of the paranasal sinuses and mastoid air cells are clear. The orbits appear normal. There are no acute fractures of the calvaria or scalp swelling. Impression: No acute intracranial hemorrhage, no evidence of acute territorial infarction or other acute intracranial disease process. ACT 112: Negative or not required by law. Electronically signed by: Darrin Rosales M.D. 05/30/2022 6:04 PM Head CTA 05/30/22 19:03 CT angio head w con, CT angio neck with con CLINICAL HISTORY: CVA sx, aphasia TECHNIQUE: Contiguous axial CT images of the head were acquired from the base of the skull to the vertex without intravenous contrast administration. CT angiography of the head and neck was performed following intravenous administration of iodinated contrast. Coronal and sagittal MIPS were obtained from the axial data set and were submitted for review. Automated dose lowering techniques and/or adjustment according to patient size were utilized for this examination. All measurements were calculated based on NASCET criteria. CT DOSE: 600.39 mGy.cm Comparison: Comparison is made to CT head 05/30/2022 FINDINGS: Lungs and soft tissues are unremarkable. CTA Neck: Direct origin of the left vertebral artery from the aortic arch is seen. There are dissections of the bilateral internal carotid arteries which do not extend to the petrous portion of the vessel. The dissections measure 14 mm on the left and 14 mm on the right. The internal carotid arteries are tortuous bilaterally. The common carotid, external carotid, cervical segments of the internal carotid arteries, and the cervical segments of the vertebral arteries are patent without hemodynamically significant stenosis. The left vertebral artery is dominant. CTA Head: The anterior and posterior cerebral circulations are patent. The left vertebral artery terminates in PICA. origin of the left [employer] noted. IMPRESSION: 1. Dissections of the bilateral internal carotid arteries not extending to the petrous portion of the artery. Distal internal carotid arteries are well opacified. 2. No occlusion, hemodynamically significant stenosis, aneurysm, dissection, or arteriovenous malformation in the major intracranial arteries. Assessment of stenosis of the internal carotid arteries is based on NASCET criteria. ACT 112: Negative or not required by law. Electronically signed by: Darrin Rosales M.D. 05/30/2022 8:05 PM Neck CTA 05/30/22 19:03 CT angio head w con, CT angio neck with con CLINICAL HISTORY: CVA sx, aphasia TECHNIQUE: Contiguous axial CT images of the head were acquired from the base of the skull to the vertex without intravenous contrast administration. CT angiography of the head and neck was performed following intravenous administration of iodinated contrast. Coronal and sagittal MIPS were obtained from the axial data set and were submitted for review. Automated dose lowering techniques and/or adjustment according to patient size were utilized for this examination. All measurements were calculated based on NASCET criteria. CT DOSE: 600.39 mGy.cm Comparison: Comparison is made to CT head 05/30/2022 FINDINGS: Lungs and soft tissues are unremarkable. CTA Neck: Direct origin of the left vertebral artery from the aortic arch is seen. There are dissections of the bilateral internal carotid arteries which do not extend to the petrous portion of the vessel. The dissections measure 14 mm on the left and 14 mm on the right. The internal carotid arteries are tortuous bilaterally. The common carotid, external carotid, cervical segments of the internal carotid arteries, and the cervical segments of the vertebral arteries are patent without hemodynamically significant stenosis. The left vertebral artery is dominant. CTA Head: The anterior and posterior cerebral circulations are patent. The left vertebral artery terminates in PICA. origin of the left [employer]ENT noted. IMPRESSION: 1. Dissections of the bilateral internal carotid arteries not extending to the petrous portion of the artery. Distal internal carotid arteries are well opacified. 2. No occlusion, hemodynamically significant stenosis, aneurysm, dissection, or arteriovenous malformation in the major intracranial arteries. Assessment of stenosis of the internal carotid arteries is based on NASCET criteria. ACT 112: Negative or not required by law. Electronically signed by: Darrin Rosales M.D. 05/30/2022 8:05 PM Abdomen/Pelvis CTA 05/30/22 20:15 CT ANGIOGRAM OF THE ABDOMEN AND PELVIS CLINICAL HISTORY: Generalized abdominal pain. COMPARISON STUDY: No priors. TECHNIQUE: Following the IV administration of 114 cc of Optiray 320, CT angiogram of the abdomen and pelvis was performed from the lung bases the proximal femora. Images are reviewed in the axial, sagittal, and coronal planes. 3-D MIPS images are created and assessed. IV contrast was administered without complication. A dose lowering technique was utilized adhering to the principles of ALARA. The examination is compromised by motion artifact. FINDINGS: Lower chest: The heart is enlarged and without pericardial effusion. A pacemaker lead is in place. There is a tiny hiatal hernia. The lung bases are clear noting bibasilar scarring/atelectasis. Liver: The contrast-enhanced liver is normal in size, contour, and attenuation. There is no intrahepatic biliary ductal dilatation. Gallbladder: Not identified and presumed surgically absent. Spleen: Normal in size and attenuation. Pancreas: Unremarkable. Adrenal glands: Unremarkable. Kidneys: The contrast enhanced kidneys demonstrate marked cortical atrophy and are without hydronephrosis. The kidneys enhance indication symmetrically. Excreted IV contrast fills the renal collecting systems and ureters. Abdominal aorta and iliac arteries: There is advanced atherosclerotic calcification and ectasia of the abdominal aorta. The distal abdominal aorta measures up to 2.8 cm in diameter. The abdominal aorta is widely patent. No dissection is seen. The iliac arteries are widely patent bilaterally. Major branches of the abdominal aorta: The celiac trunk, superior mesenteric, and inferior mesenteric arteries are widely patent. An accessory left hepatic artery arises from the left gastric artery. The splenic artery is patent. Single bilateral renal arteries are widely patent. Bowel: There is mild colonic diverticulosis without CT evidence of acute diverticulitis. No bowel obstruction is seen. The appendix is not clearly visualized. Peritoneum: There is no intraperitoneal free air or abdominal ascites. There is a fat-containing umbilical hernia. Lymphadenopathy: None. Pelvic viscera: Evaluation of the pelvis is degraded by streak artifact from a right hip arthroplasty. The prostate gland is enlarged and heterogeneous. The bladder is filled with excreted IV contrast. The bladder wall appears thickened and trabeculated indicating chronic outlet obstruction. There are several bladder diverticula which measure up to 2.3 cm. Skeletal structures: The skeletal structures are osteopenic. No destructive bony lesions are seen. A right hip arthroplasty is in place. There are healed right pubic ring fractures. There are age indeterminate compression deformities of T10, T11, T12, L1, and L5. IMPRESSION: 1. There is advanced atherosclerotic calcification and ectasia of the abdominal aorta. 2. No dissection is seen. 3. Unremarkable CT angiogram of the major branches of the abdominal aorta. 4. No acute infectious or inflammatory findings are identified in the abdomen or pelvis. 5. Marked cardiomegaly and cardiac pacemaker. 6. There are age indeterminant thoracolumbar compression deformities as above. Clinical correlation will be required. 7. Colonic diverticulosis without CT evidence of acute diverticulitis. 8. Prostatomegaly with evidence of chronic bladder outlet obstruction. 9. Additional findings as above. ACT 112: Negative or not required by law. Electronically signed by: Gerardo Saez M.D. 05/31/2022 7:11 AM Chest CTA 05/30/22 20:15 CT ANGIOGRAPHY OF THE CHEST DISSECTION PROTOCOL CLINICAL HISTORY: Chest pain. Evaluate for aortic dissection. COMPARISON STUDY: Chest radiograph May 30, 2022. TECHNIQUE: Before and following the IV administration of 114 mL of Optiray, helical axial images of the chest were obtained. Maximal intensity projections and sagittal and coronal reformats were viewed on an independent 3D workstation. IV contrast was administered without complication. Automated exposure control was utilized for the study. A dose lowering technique was utilized adhering to the principles of ALARA. CT DOSE: 888.93 mGy.cm FINDINGS: Caliber of the thoracic aorta is normal. There is no intramural hematoma or thoracic aortic dissection. There is cardiomegaly. Left atrial appendage occluded device is in place. A left subclavian pacer is in place. There is pronounced dilatation of the left atrium and left ventricle. There is no pericardial effusion. Moderate dilatation of the central pulmonary arteries is noted. There is no pneumothorax thorax. Trace bilateral pleural effusions are noted. Mild interlobular septal thickening is noted. There is no consolidation to suggest pneumonia. Groundglass opacities favor atelectasis. Moderate T3 and T5 compression fractures are likely old. There are severe T10 and T11 compression fractures. These are age indeterminate but probably old. There is an age indeterminate moderate to severe L1 compression fracture. A 1.5 cm right upper pole renal calculus is present. IMPRESSION: 1. No thoracic aortic dissection. 2. Cardiomegaly with mild interstitial pulmonary edema and trace bilateral pleural effusions. 3. No consolidation to suggest pneumonia. 4. Multiple thoracic and upper lumbar spine compression fractures, as detailed above. 5. 1.5 cm right renal calculus. ACT 112: Negative or not required by law. Electronically signed by: Liang Cho M.D. 05/31/2022 8:38 AM Brain MRI 05/31/22 00:53 MR brain wo con CLINICAL HISTORY: Confusion TECHNIQUE: Multiplanar and multisequence MR images of the brain were obtained without intravenous contrast. Comparison: Comparison is made to CTA head and neck 05/30/2022 FINDINGS: There is a focus of restricted diffusion in the right parietal lobe with a small amount of edema. Foci of T2 and FLAIR hyperintensity are noted in the paraventricular areas consistent with chronic small vessel ischemic disease. Given septum pellucidum is seen. Ex vacuo ventriculomegaly and sulcal enlargement is noted compatible with diffuse encephalomalacia. No mass is seen. There is no mass effect or midline shift. There is no evidence of acute intraparenchymal hemorrhage. No extra axial fluid collections are seen. The corpus callosum, pituitary gland, and cerebellar tonsils appear grossly unremarkable. Flow voids of the major intracranial arterial vessels are identified. The imaged portions of the paranasal sinuses, mastoid air cells, and orbits are unremarkable. IMPRESSION: 1. There is a tiny infarct in the right parietal lobe with associated edema without significant mass effect or midline shift. No hemorrhagic transformation is seen. 2. Extensive diffuse age-related encephalomalacia and white matter disease noted. ACT 112: Negative or not required by law. Electronically signed by: Darrin Rosales M.D. 05/31/2022 4:[address] 06/02/22 07:42 CT head/brain wo con CLINICAL HISTORY: 81 years-old Male with eval for hemorrahge. Acute headache TECHNIQUE: Multiple axial CT images of the head were obtained without contrast. A dose lowering technique was utilized adhering to the principles of ALARA. CT DOSE: 884.08 mGy.cm COMPARISON: Brain MRI May 31, 2022, head CT May 30, 2022 FINDINGS: There is an acute intraparenchymal hemorrhage within the left temporal parietal lobe measuring 6.2 x 3.0 cm with surrounding vasogenic edema and local mass effect, new from prior. No significant midline shift. Partial effacement of the temporal horn left lateral ventricle. The basilar cisterns appear preserved. No hydrocephalus. Involutional changes with chronic microvascular ischemic disease. Cerebral vascular calcifications. The tiny acute infarct within the periventricular aspect of the right parietal lobe on image 21 series 2 redemonstrated measuring 1.2 cm. The calvarium is intact. The paranasal sinuses, mastoid air cells, and middle ear cavities are clear. IMPRESSION: 1. Acute intraparenchymal hemorrhage in the left temporal parietal lobe measures up to 6 cm with surrounding vasogenic edema and mass effect. 2. No significant midline shift, hydrocephalus or herniation. 3. Small acute infarct in the periventricular right parietal lobe redemonstrated. Findings were discussed with Dr. Mcgowan on 06/02/2022 at 8:05 AM. ACT 112: Negative or not required by law. The above report was generated using voice recognition software. It may contain grammatical, syntax or spelling errors. Electronically signed by: Rolando Akbar M.D. 06/02/2022 8:09 AM Hospital Course (1) Hemorrhagic stroke: Patient had acute headache on 7:28 AM, called by nursing stat CT scan was ordered. Radiology called me and confirmed a 6 cm left temporal intraparenchymal hemorrhage the patient did not have preceding hypertensive urgency but blood pressure nicole a subsequent to his headache. I phoned his who is at a detention and she confirmed that she wished for aggressive care. Patient also confirmed this. The patient is a full code. Patient previously lived resided in [place]. I called [facility] for transfer to [place] due to hemorrhagic stroke. Accepting physician is Dr. AIKEN Prior to leaving the patient to receive IV hydralazine x1 blood pressure is currently 140s over 80s. Prior to this the patient did not receive any chemoprophylaxis for DVT but was on aspirin and Plavix for his ischemic stroke as seen by previous imaging on 31 May this is on the contralateral side I did call to send images electronically copy to desk. Patient was be sent by ALS (2) Altered mental status: * Resolved. * Reports that he did have a little trouble this morning when the kitchen staff was "talking to fast," but otherwise reports that he is near his baseline. * MRI Brain c/w RIGHT parietal lobe infarct. * EEG unremarkable. * Echo no evidence of PFO normal EF * Antiplatelet agents discontinued on the morning of the (3) Hypoxia: * COVID-19 testing negative on 30 May * Likely related to his degree of confusion, etc. * CTA chest unremarkable. * Has since been titrated off O2 to room air. 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 (5) A-fib: * Follows with Cardiology in [place] * Continue Cardizem * Reports h/o Watchman procedure - no need for anticoagulation (6) HTN (hypertension): * Continue Cardizem/Lasix as tolerated. (7) HLD (hyperlipidemia): * Continue atorvastatin (8) H/O: CVA (cerebrovascular accident): (9) Alcohol use: * Reports drinking a "beer or 2" with dinner then transitioning to whisky the rest of the night. Does not quantify amounts, but has what sounds to be >5-6 drinks per night. * Reports no prior issues with withdrawal symptoms in the past, however he has been drinking nightly for the past few years. * He recognizes that he probably drinks more than he should. * Educated on the concerns of significant alcohol use, especially with the risk of falls. * Will add CIWA scale for closer monitoring. * Receiving thiamine/B12 now. Total Time Total Time Spent Total Time Spent (In Minutes): It required greater than 30 minutes to prepare this patient for discharge Discharge Plan Discharge Items Patient Disposition: Transfer Acute Care Hospital Reason For Visit: CONFUSION, ENCEPHALOPATHY Discharge Diagnosis: hemorrhagic stroke Activity: Per Instructions section Non-emergency contact: Surgeon Call non-emergency contact if: your symptoms worsen Follow-up/Referrals: Alan Pederson D.O. [Primary Care Provider] - Diet: Regular Addtl Attending Provider Instructions: pt is going to be transferred to [facility] for acute hemorrhagic stroke Pending Studies at Discharge: No Stand-Alone Forms: My [facility] [employer] Skilled Items Patient informed of condition?: Yes DNR: No Discharge Level of Care: Other Communicable Disease: No Discharge Prognosis: Stable Lines: Peripheral IV Urinary Catheter: No Medications and DC Order Prescriptions: New thiamine HCl (vitamin B1) 100 mg Tablet 100 mg PO QAM Qty: 30 0RF cyanocobalamin (vitamin B-12) 500 mcg Tablet 500 mcg PO QAM Qty: 30 0RF Continued furosemide 40 mg tablet 40 mg PO BID atorvastatin 40 mg tablet 40 mg PO ONCE HS hydrocodone-acetaminophen 5-325 mg tablet 1 tab PO Q8H PRN (Reason: Severe Pain (Scale Score 7-10)) diltiazem HCl 300 mg capsule,extended release 24hr 300 mg PO DAILY cholecalciferol (vitamin D3) 50 mcg (2,000 unit) capsule PO DAILY Discontinued prednisone 10 mg tablet tamsulosin 0.4 mg capsule 0.4 mg PO DAILY Discharge Orders: Discharge Order (Routine); Ordered 06/02/22 Ordered By: Hamilton Mcgowan Admission Data Admit Date/Time: 05/30/22 22:35 Attending Provider: Hamilton Mcgowan Admit Provider: Ramy Merino Primary Care Provider: Alan Pederson Other Providers: Mukesh Abernathy Emile Coding Level of Care Code HOSP INP/OBS DISCH >30 MIN Diagnoses Hemorrhagic stroke I61.9 Altered mental status R41.0 Altered mental status type: delirium Hypoxia R09.02 Internal carotid artery dissection I77.71 A-fib I48.91 HTN (hypertension) I10 HLD (hyperlipidemia) E78.5 H/O: CVA (cerebrovascular accident) Z86.73 Alcohol use Z78.9
[2022-06-02 09:19] LABS: BUN Creatinine Ratio 20.9 (10-20); Calcium 8.7 mg/dl (8.5-10.1); Chol HDL Ratio 2.7 (0-5); Creatinine Clr Calc Pharmacy 65.2 ml/min; Est GFR (African American) 92.6 ml/min; Est GFR (Non-African American) 79.9 ml/min; Potassium 3.3 mmol/L (3.5-5.1)
[2022-06-02] MEDS ORDERED: levETIRAcetam 1,000 MG in 0.9 % SODIUM CHLORIDE 100 ML IV STA (10:12)
[2022-06-02 10:34] LABS: Estimated Average Glucose 117 mg/dl; Hemoglobin A1C 5.7 % (4.5-5.6)
== END 2022-06-02 11:34 | disposition short-term general hospital (02) | DRG 64 ==
LOC: EDBD → ED 16:25 → SUATTDRO 22:35 → EDINP 22:35 → 2N 05-31 00:44